=== PATIENT | female | born 1965 | race Caucasian/White ===

== ENCOUNTER → 2017-09-18 | Outpatient (CLI) | payer BC, OTHER ==
--- NOTE | 2017-09-19 08:59 | WOMENS IMAGING REPORT ---
EXAM DESCRIPTION: BILAT SCREENING MAMMO W/CAD COMPLETED DATE/TIME: 09/18/2017 9:14 am REASON FOR STUDY: ROUTINE SCREENING; Z12.31 Z12.31 ENCNTR SCREEN MAMMOGRAM FOR MALIGNANT NEOPLASM O F JUVE COMPARISON: 2008, 2011 TECHNIQUE: Standard craniocaudal and mediolateral oblique views of each breast recorded using [employer] acquisition. LIMITATIONS: None. FINDINGS: Findings present which are benign by mammographic criteria. No suspicious masses, calcifi cations or architectural distortion. Pertinent benign findings: Benign bilateral breast calcifications. Read with the assistance of CAD. .[facility] - R2 Cenova Version 1.3 .[facility] - R2 Cenova Version 1.3 .[facility] - R2 Cenova Version 2.4 [facility] R2 Cenova Version 2.4 .[facility] - R2 [employer] Version 9.2 Benign mammographic findings may include one or more of the following: Smooth masses, popcorn/rim/co arse calcifications, asymmetries, post-procedure changes, and lesions with long-standing stability. IMPRESSION: BENIGN MAMMOGRAPHIC FINDINGS. BIRADS 2 BREAST DENSITY: b. There are scattered areas of fibroglandular density. BIRAD: 2 BENIGN FINDING(S) RECOMMENDATION: ROUTINE SCREENING Please consider bilateral screening tomosynthesis in September 2018 COMMENT: The patient has been notified of the results by letter per MQSA requirements. Additional no tification policies are in place for contacting patient with suspicious or incomplete findings. Quality ID #[id number]: The [employer] recommends an annual screening mammogram for women aged 40 years or over. This facility utilizes a reminder system to ensure that all patients receive reminder letters, and/or direct phone calls for appointments. This includes reminders for routine scr eening mammograms, diagnostic mammograms, or other Breast Imaging Interventions when appropriate. Th is patient will be placed in the appropriate reminder system. The [employer] (ACR) has developed recommendations for screening MRI of the breast s in certain patient populations, to be used in conjunction with mammography. Breast MRI surveillanc e may be appropriate for women with more than 20% lifetime risk of developing breast cancer as deter mined by genetic testing, significant family history of the disease, or history of mantle radiation f or Hodgkins Disease. ACR Practice Guidelines 2008. TECHNICAL DOCUMENTATION: FINDING NUMBER: (1) ASSESSMENT: (1) JOB ID: [id number] [employer]- All Rights Reserved
== END ==
LOC: WI 09:08
PROVIDERS: ATTEND Family Medicine
DX: Z12.31 Encounter for screening mammogram for malignant neoplasm of breast (principal)
CPT/HCPCS: 77067

== ENCOUNTER 2017-10-23 18:59 | Inpatient (IN) | payer OTHER ==
[2017-10-23] MEDS ORDERED: ONDANSETRON HCL INJ/PF 4 MG/2 ML SDV IV ONE (20:10)
[2017-10-23] MEDS ORDERED: KETOROLAC TROMETHAMINE INJ/PF 30 MG/1 ML SDV IV ONE (20:11)
--- NOTE | 2017-10-23 20:26 | ER Document Report ---
ED Medical Screen (RME) - General Chief Complaint: Flu Symptoms Stated Complaint: FLU SYMPTOMS, BLOOD PRESSURE ISSUE Time Seen by Provider: 10/23/17 20:03 Mode of Arrival: Ambulatory Information source: Patient Notes: 51-year-old female presents with a 1 week duration of generalized weakness body aches cough nonproductive as well as diarrhea I have greeted and performed a rapid initial assessment of this patient. A comprehensive ED assessment and evaluation of the patient, analysis of test results and completion of the medical decision making process will be conducted by additional ED providers. PHYSICAL EXAMINATION: GENERAL: appears tired HEAD: Atraumatic, normocephalic. EYES: Pupils equal round extraocular movements intact, conjunctiva are normal. ENT: Nares patent NECK: Normal range of motion LUNGS: No respiratory distress Musculoskeletal: Normal range of motion NEUROLOGICAL: Normal speech, normal gait. PSYCH: Normal mood, normal affect. SKIN: Warm, Dry, normal turgor, no rashes or lesions noted. TRAVEL OUTSIDE OF THE [place] IN LAST 30 DAYS: No - Related Data Allergies/Adverse Reactions: iodine [Iodine] Allergy (Severe, Verified 10/23/17 19:02) SWELLING Sulfa (Sulfonamide Antibiotics) Adverse Reaction (Severe, Verified 10/23/17 19: 02) Hives codeine [Codeine] Adverse Reaction (Intermediate, Verified 10/23/17 19:02) RAPID HEARTBEAT Past Medical History - Past Medical History Cardiac Medical History: Denies: Hx Coronary Artery Disease, Hx Heart Attack, Hx Hypertension Pulmonary Medical History: Reports: Hx Asthma, Hx Bronchitis, Hx COPD, Hx Pneumonia Neurological Medical History: Denies: Hx Cerebrovascular Accident, Hx Seizures Renal/ Medical History: Denies: Hx Peritoneal Dialysis Musculoskeltal Medical History: Reports Hx Arthritis Past Surgical History: Reports: Hx Section. Denies: Hx Hysterectomy - Immunizations Hx Diphtheria, Pertussis, Tetanus Vaccination: Yes Physical Exam - Vital signs Vitals: Temp Pulse Resp BP Pulse Ox 97.7 F 116 H 22 H 98/56 L 95 10/23/17 19:13 10/23/17 19:13 10/23/17 19:13 10/23/17 19:13 10/23/17 19:13 Course - Vital Signs Vital signs: Temp Pulse Resp BP Pulse Ox 97.7 F 116 H 22 H 98/56 L 95 10/23/17 19:13 10/23/17 19:13 10/23/17 19:13 10/23/17 19:13 10/23/17 19:13
[2017-10-23 20:46] LABS: HEMATOCRIT 36.5 % (36.0-47.0); HEMOGLOBIN 12.1 g/dL (12.0-15.5); MEAN CORPUSCULAR HEMOGLOBIN 26.6 pg (27.0-33.4); MEAN CORPUSCULAR HGB CONC 33.1 g/dL (32.0-36.0); MEAN CORPUSCULAR VOLUME 81 fl (80-97); PLATELET COUNT 495 10^3/uL (150-450); RED BLOOD COUNT 4.53 10^6/uL (3.72-5.28); RED CELL DISTRIBUTION WIDTH 14.6 % (11.5-14.0); WHITE BLOOD COUNT 27.9 10^3/uL (4.0-10.5)
--- NOTE | 2017-10-23 20:58 | RADIOLOGY REPORT (SQ) ---
EXAM DESCRIPTION: CHEST PA/LAT COMPLETED DATE/TIME: 10/23/2017 8:37 pm REASON FOR STUDY: cough fever COMPARISON: None. EXAM PARAMETERS: NUMBER OF VIEWS: two views TECHNIQUE: Digital Frontal and Lateral radiographic views of the chest acquired. RADIATION DOSE: NA LIMITATIONS: none FINDINGS: LUNGS AND PLEURA: There is considerable opacification in the right lung involving apparent ly the upper, middle, and lower lobes. The left lung is free of infiltrates. MEDIASTINUM AND HILAR STRUCTURES: No masses or contour abnormalities. HEART AND VASCULAR STRUCTURES: Heart normal size. No evidence for failure. BONES: No acute findings. HARDWARE: None in the chest. OTHER: No other significant finding. IMPRESSION: Extensive pneumonia in the right lung. TECHNICAL DOCUMENTATION: JOB ID: [id number] [employer]- All Rights Reserved Reading location - IP/workstation name: [email or web address]
[2017-10-23 21:04] LABS: ALANINE AMINOTRANSFERASE 38 U/L (9-52); ALBUMIN 3.1 g/dL (3.5-5.0); ALKALINE PHOSPHATASE 149 U/L (38-126); ASPARTATE AMINO TRANSFERASE 37 U/L (14-36); BILIRUBIN,TOTAL 1.1 mg/dL (0.2-1.3); BLOOD UREA NITROGEN 57 mg/dL (7-20); CALCIUM 8.9 mg/dL (8.4-10.2); CREATINE KINASE 39 U/L (30-135); GLUCOSE 194 mg/dL (75-110); POTASSIUM 4.3 mmol/L (3.6-5.0)
[2017-10-23 21:09] LABS: ANION GAP 19 (5-19); CARBON DIOXIDE 16 mmol/L (22-30); CHLORIDE 88 mmol/L (98-107)
--- NOTE | 2017-10-23 21:12 | ER Document Report ---
ED Respiratory Problem - General Chief Complaint: Flu Symptoms Stated Complaint: FLU SYMPTOMS, BLOOD PRESSURE ISSUE Time Seen by Provider: 10/23/17 20:03 Mode of Arrival: Ambulatory Notes: Patient is a 51-year-old female that comes emergency department for chief complaint of difficulty breathing, weakness, productive green sputum and a few flecks of blood, she states she has worsened for the past several days, she states initially she had a "cold" and diarrhea but now she feels much worse. She has been running fevers. Past medical history of diabetes, former smoker, no history of COPD, asthma, CAD. She has had the influenza and pneumonia vaccines. TRAVEL OUTSIDE OF THE [place] IN LAST 30 DAYS: No - Related Data Allergies/Adverse Reactions: iodine [Iodine] Allergy (Severe, Verified 10/23/17 19:02) SWELLING Sulfa (Sulfonamide Antibiotics) Adverse Reaction (Severe, Verified 10/23/17 19: 02) Hives codeine [Codeine] Adverse Reaction (Intermediate, Verified 10/23/17 19:02) RAPID HEARTBEAT Past Medical History - General Information source: Patient - Social History Smoking Status: Former Smoker Frequency of alcohol use: None Drug Abuse: None Lives with: Family Family History: Reviewed & Not Pertinent Patient has suicidal ideation: No Patient has homicidal ideation: No - Past Medical History Cardiac Medical History: Denies: Hx Coronary Artery Disease, Hx Heart Attack, Hx Hypertension Pulmonary Medical History: Reports: Hx Asthma, Hx Bronchitis, Hx COPD, Hx Pneumonia Neurological Medical History: Denies: Hx Cerebrovascular Accident, Hx Seizures Renal/ Medical History: Denies: Hx Peritoneal Dialysis Musculoskeltal Medical History: Reports Hx Arthritis Past Surgical History: Reports: Hx Section. Denies: Hx Hysterectomy - Immunizations Hx Diphtheria, Pertussis, Tetanus Vaccination: Yes Review of Systems - Review of Systems Constitutional: See HPI EENT: No symptoms reported Cardiovascular: No symptoms reported Respiratory: See HPI Gastrointestinal: See HPI Genitourinary: No symptoms reported Female Genitourinary: No symptoms reported Musculoskeletal: No symptoms reported Skin: No symptoms reported Hematologic/Lymphatic: No symptoms reported Neurological/Psychological: No symptoms reported Physical Exam - Vital signs Vitals: Temp Pulse Resp BP Pulse Ox 97.7 F 116 H 22 H 98/56 L 95 10/23/17 19:13 10/23/17 19:13 10/23/17 19:13 10/23/17 19:13 10/23/17 19:13 - General General appearance: Anxious In distress: Moderate - patient on her side, labored breathing, appears to be very uncomfortable - Respiratory Respiratory status: Respiratory distress - Mild, Labored, Tachypnea Breath sounds: Decreased air movement - Decreased breath sounds, right greater than left, scattered rhonchi - Cardiovascular Rhythm: Regular, Tachycardia Heart sounds: Normal auscultation, S1 appreciated, S2 appreciated Gallop: None auscultated Normal capillary refill: Yes - Abdominal Inspection: Normal Tenderness: Nontender. No: Tender, Guarding - Back Back: Normal, Nontender. No: Tender - Extremities General upper extremity: Normal inspection, Nontender, Normal ROM, Normal strength General lower extremity: Normal inspection, Nontender, Normal ROM, Normal strength. No: Edema - Neurological Neuro grossly intact: Yes Cognition: Normal Orientation: AAOx4 [place] Coma Scale Eye Opening: Spontaneous [place] Coma Scale Verbal: Oriented [place] Coma Scale Motor: Obeys Commands Patricia Coma Scale Total: 15 Speech: Normal Cranial nerves: Normal Cerebellar coordination: Normal Motor strength normal: LUE, RUE, LLE, RLE Additional motor exam normals: Equal scallop binder Sensory: Normal - Skin Skin Temperature: Warm Skin Moisture: Dry Skin Color: Normal Course - Re-evaluation Re-evalutation: On initial evaluation patient in mild respiratory distress with tachypnea, pursed lip breathing, labored breathing, decreased breath sounds much worse on the right compared to the left, scattered rhonchi, she is tachycardic, hypotensive. Concern for sepsis. Starting antibiotics. CBC shows marked leukocytosis, suspect some dehydration component with low bicarbonate and acute renal insufficiency with reported diarrhea. However patient is in mild respiratory distress. After placing patient on nasal cannula her tachypnea improved, she does not have any hypoxia, she appears clinically improved. Will reassess. Chest x-ray showing large right-sided pneumonia. Discussed with family, will admit patient to the hospital for pneumonia, suspected sepsis, acute renal insufficiency. Spoke with Dr. Sultana, patient will be admitted to the [facility]. 10/23/17 22:50 Called to bedside, patient has become hypoxic, down to the 70s on nasal cannula , she is decompensating. Placed on BiPAP. On BiPAP patient's respiratory distress decreased, she is oxygenating well. ABG sent. Called and updated Dr. Sultana. Updated Dr. Lacey. 10/23/17 After patient was placed on BiPAP she significantly improved, hypoxia resolved, patient stating she feels much better, clinically she is much improved. Initial ABG is concerning, will be repeated. Repeat ABG was not concerning. Patient significantly improved. Stable on BiPAP for now. - Vital Signs Vital signs: Temp Pulse Resp BP Pulse Ox 97.6 F 93 20 107/49 L 100 10/24/17 05:21 10/24/17 05:21 10/24/17 05:21 10/24/17 05:21 10/24/17 05:21 - Laboratory Result Diagrams: 10/24/17 04:52 10/24/17 04:52 Laboratory results interpreted by me: 10/23/17 10/23/17 10/23/17 20:21 20:21 21:20 WBC 27.9 H MCH 26.6 L RDW 14.6 H Plt Count 495 H Seg Neuts % (Manual) 89 H Lymphocytes % (Manual) 3 L Abs Neuts (Manual) 25.9 H VBG pCO2 32.0 L VBG HCO3 15.9 L Sodium 123.0 L Chloride 88 L Carbon Dioxide 16 L BUN 57 H Creatinine 3.36 H Est GFR ( Amer) 17 L Est GFR (Non-Af Amer) 14 L Glucose 194 H AST 37 H Alkaline Phosphatase 149 H Total Protein 6.0 L Albumin 3.1 L Critical Care Note - Critical Care Note Total time excluding time spent on procedures (mins): 40 - Sepsis, respiratory distress, hypotension, hypoxia Comments: Please allow 40 minutes of critical care time for evaluation and treatment of patient with pneumonia, sepsis, tachycardia, hypotension, hypoxia, multiple re- evaluations, multiple treatments, consultation and admission to the hospital. Discharge - Discharge Clinical Impression: Tachycardia, Hypoxia Pneumonia Qualifiers: Pneumonia type: due to unspecified organism Laterality: right Lung location: unspecified part of lung Qualified Code(s): J18.9 - Pneumonia, unspecified organism Acute renal failure Qualifiers: Acute renal failure type: unspecified Qualified Code(s): N17.9 - Acute kidney failure, unspecified Hypotension Qualifiers: Hypotension type: unspecified hypotension type Qualified Code(s): I95.9 - Hypotension, unspecified Condition: Fair Disposition: ADMITTED INPATIENT Admitting Provider: Hospitalist Unit Admitted: [facility]
[2017-10-23 21:16] LABS: ABSOLUTE LYMPHOCYTES# (MANUAL) 0.8 10^3/uL (0.5-4.7); ABSOLUTE MONOCYTES # (MANUAL) 1.1 10^3/uL (0.1-1.4); ABSOLUTE NEUTROPHILS# (MANUAL) 25.9 10^3/uL (1.7-8.2); BAND NEUTROPHILS % (MANUAL) 4 % (3-5); BASOPHILS % (MANUAL) 0 % (0-2); CREATINE KINASE MB 1.65 ng/mL (<4.55); EOSINOPHILS % (MANUAL) 0 % (0-6); LYMPHOCYTES % (MANUAL) 3 % (13-45); MONOCYTES % (MANUAL) 4 % (3-13); SEGMENTED NEUTROPHILS % (MAN) 89 % (42-78); TOTAL CELLS COUNTED 100
[2017-10-23] MEDS ORDERED: CEFTRIAXONE INJ 1000 MG VIAL IV ONE (21:16)
[2017-10-23 21:17] LABS: ANISOCYTOSIS SLIGHT; HYPOCHROMASIA SLIGHT; PLATELET COMMENT INCREASED; POIKILOCYTOSIS SLIGHT; TOXIC GRANULATION SLIGHT; TROPONIN I < 0.012 ng/mL
[2017-10-23] MEDS ORDERED: AZITHROMYCIN INJ 500 MG VIAL IV ONE (21:17)
[2017-10-23 21:37] LABS: VENOUS BLOOD BASE EXCESS -9.2 mmol/L; VENOUS BLOOD HCO3 15.9 mmol/L (20-32); VENOUS BLOOD PH 7.31 (7.30-7.42)
[2017-10-23] MEDS: NORMAL SALINE 1000 ML 1,000 ML IV PRN ×2 (21:39→22:12)
[2017-10-23] MEDS ORDERED: DEXTROSE 40% GEL 15 GM TUBE PO PRN ×2 (22:09)
[2017-10-23] MEDS ORDERED: GLUCAGON,HUMAN RECOMB 1 MG INJ IM PRN (22:09)
[2017-10-23] MEDS ORDERED: IPRATROPIUM/ALBUTEROL 0.5-2.5 MG/3 ML AMPUL NEB PRN (22:09)
[2017-10-23] MEDS ORDERED: DEXTROSE 50%-WATER 25 GM/50 ML DISP.SYRIN IV PRN ×2 (22:09)
[2017-10-23] MEDS ORDERED: VANCOMYCIN HCL 1,500 MG in DEXTROSE 5%-WATER 250 ML IV ONE (22:12)
[2017-10-23] MEDS ORDERED: VANCOMYCIN HCL 0 MG in DEXTROSE 5%-WATER 250 ML IV NR (22:15)
[2017-10-23] MEDS ORDERED: NORMAL SALINE 1000 ML 1,000 ML IV SCH (22:15)
[2017-10-23] MEDS ORDERED: VANCOMYCIN HCL INJ 1000 MG VIAL IV PRN (22:37)
[2017-10-23] MEDS ORDERED: DEXTROSE 5%-WATER 250 ML with NOREPINEPHRINE BITARTRATE 4 MG IV PRN ×2 (23:07)
[2017-10-23 23:27] LABS: ARTERIAL BLOOD BASE EXCESS -12.9 mmol/L; ARTERIAL BLOOD H2CO3 1.46 mmol/L (1.05-1.35); ARTERIAL BLOOD HCO3 15.9 mmol/L (20-26); ARTERIAL BLOOD O2 SATURATION 99.6 % (94-98); ARTERIAL BLOOD PCO2 48.4 mmHg (35-45); ARTERIAL BLOOD PO2 348.5 mmHg (80-100); ARTERIAL BLOOD TOTAL CO2 17.4 mmol/L (21-25)
[2017-10-23 23:29] LABS: ARTERIAL BLOOD FIO2 100%
[2017-10-23 23:33] LABS: ARTERIAL BLOOD PH 7.14 (7.35-7.45)
[2017-10-24] MEDS: HYDROCORTISONE SOD SUCCINATE INJ/PF 100 MG/2 ML SDV IV SCH ×3 (00:32→21:20)
[2017-10-24 01:20] LABS: ARTERIAL BLOOD BASE EXCESS -10.5 mmol/L; ARTERIAL BLOOD H2CO3 1.05 mmol/L (1.05-1.35); ARTERIAL BLOOD HCO3 15.5 mmol/L (20-26); ARTERIAL BLOOD O2 SATURATION 98.7 % (94-98); ARTERIAL BLOOD PCO2 34.8 mmHg (35-45); ARTERIAL BLOOD PH 7.27 (7.35-7.45); ARTERIAL BLOOD PO2 153.8 mmHg (80-100); ARTERIAL BLOOD TOTAL CO2 16.5 mmol/L (21-25)
[2017-10-24 01:22] LABS: ARTERIAL BLOOD FIO2 60%
--- NOTE | 2017-10-24 02:41 | PDOC H&P ---
History of Present Illness Admission Date/PCP: 10/23/17 22:34 Patient complains of: Shortness of breath and fever History of Present Illness: MATTIE LAI is a 51 year old female with a past medical history of diabetes, COPD and annual pneumonia. Patient presents 1 week after diagnosis of influenza with initial improvement but subsequent worsening. She has had subjective fever and diarrhea. In the emergency room she is hypotensive with acute renal failure, metabolic acidosis and hypoxia. She receives empiric antibiotics and supplemental oxygen refer to the hospitalist for admission. Patient denies recent change in medications. She has been exposed to multiple ill contacts at work. She currently denies chest pain, palpitations nausea or vomiting. Past Medical History Cardiac Medical History: Denies: Coronary Artery Disease, Myocardial Infarction, Hypertension Pulmonary Medical History: Reports: Asthma, Bronchitis, Chronic Obstructive Pulmonary Disease (COPD), Pneumonia EENT Medical History: Reports: None Neurological Medical History: Reports: None Denies: Seizures Endocrine Medical History: Reports: Diabetes Mellitus Type 2 Renal/ Medical History: Reports: None Malignancy Medical History: Reports: None GI Medical History: Reports: None Musculoskeltal Medical History: Reports: Arthritis Skin Medical History: Reports: None Psychiatric Medical History: Reports: None Traumatic Medical History: Reports: None Hematology: Denies: Anemia Infectious Medical History: Reports: None Past Surgical History Past Surgical History: Reports: Section Denies: Hysterectomy Social History Information Source: Patient, Relative Lives with: Spouse/Significant other Smoking Status: Former Smoker Frequency of Alcohol Use: Occasional Hx Recreational Drug Use: No Hx Prescription Drug Abuse: No - Advance Directive Resuscitation Status: Full Code Family History Family History: COPD Parental Family History Reviewed: Yes Children Family History Reviewed: Yes Sibling(s) Family History Reviewed.: Yes Medication/Allergy Home Medications: Acetaminophen [Tylenol] 500 mg PO PRN PRN 04/02/14 Aspirin 81 mg PO DAILY PRN 04/02/14 Budesonide/Formoterol Fumarate [Symbicort HFA 160-4.5 mcg Inhaler 6 gm] 2 puff IH Q12 04/02/14 Esomeprazole Mag Trihydrate [Nexium] 40 mg PO DAILY 04/02/14 Guaifenesin [Mucus Relief] 600 mg PO ASDIR 04/02/14 Krill/[place]-3/Dha/Epa/Lipids [Krill Oil 300 mg Softgel] 1 each PO DAILY Levothyroxine Sodium 88 mcg PO DAILY 04/02/14 Metformin HCl [Glucophage 500 mg Tablet] 500 mg PO BID 04/02/14 Montelukast Sodium [Singulair 10 mg Tablet] 10 mg PO DAILY 04/02/14 Multivitamin [Multi Vitamin Daily] 1 each PO DAILY 04/02/14 Sertraline HCl 50 mg PO DAILY 04/02/14 Simvastatin [Zocor 20 mg Tablet] 20 mg PO QHS 04/02/14 Allergies/Adverse Reactions: iodine [Iodine] Allergy (Severe, Verified 10/23/17 19:02) SWELLING Sulfa (Sulfonamide Antibiotics) Adverse Reaction (Severe, Verified 10/23/17 19: 02) Hives codeine [Codeine] Adverse Reaction (Intermediate, Verified 10/23/17 19:02) RAPID HEARTBEAT Review of Systems Constitutional: PRESENT: as per HPI, anorexia, chills, fatigue, fever(s), headache(s), weakness Eyes: ABSENT: visual disturbances Ears: PRESENT: as per HPI Cardiovascular: ABSENT: chest pain, dyspnea on exertion, edema, orthropnea, palpitations Respiratory: PRESENT: as per HPI, cough, dyspnea, sputum. ABSENT: hemoptysis Gastrointestinal: PRESENT: diarrhea. ABSENT: abdominal pain, constipation, hematemesis, hematochezia, nausea, vomiting Genitourinary: ABSENT: dysuria, hematuria Musculoskeletal: ABSENT: joint swelling Integumentary: ABSENT: rash, wounds Neurological: ABSENT: abnormal gait, abnormal speech, confusion, dizziness, focal weakness, syncope Psychiatric: ABSENT: anxiety, depression, homidical ideation, suicidal ideation Endocrine: ABSENT: cold intolerance, heat intolerance, polydipsia, polyuria Hematologic/Lymphatic: ABSENT: easy bleeding, easy bruising Physical Exam Vital Signs: Temp Pulse Resp BP Pulse Ox 97.6 F 105 H 26 H 113/62 100 10/24/17 01:41 10/24/17 01:41 10/24/17 01:41 10/24/17 01:41 10/24/17 01:41 Pulse Oximeter Continuous Start: 10/23/17 22: 09 Freq: RTQ4 Status: Active Document 10/24/17 00:00 STI (Rec: 10/24/17 01:38 STI [id number]) Pulse Oximetry Assessment Oxygen Saturation (92-100) 98 Oxygen Delivery Method Bi-pap Fraction of Inspired Oxygen (FIO2) 60 Equipment Usage Equipment Standby Continuous SpO2 Machine # ER MONITOR General appearance: PRESENT: cooperative, disheveled, obese, severe distress Head exam: PRESENT: atraumatic, normocephalic Eye exam: PRESENT: conjunctiva pink, EOMI, PERRLA. ABSENT: scleral icterus Ear exam: PRESENT: normal external ear exam Mouth exam: PRESENT: moist, tongue midline Neck exam: ABSENT: carotid bruit, JVD, lymphadenopathy, thyromegaly Respiratory exam: PRESENT: accessory muscle use, decreased breath sounds, prolonged expiratory phas, rales, retraction, rhonchi, tachypnea. ABSENT: stridor, symmetrical, unlabored, wheezes Cardiovascular exam: PRESENT: RRR. ABSENT: diastolic murmur, rubs, systolic murmur Pulses: PRESENT: normal dorsalis pedis pul Vascular exam: PRESENT: normal capillary refill GI/Abdominal exam: PRESENT: normal bowel sounds, soft. ABSENT: distended, guarding, mass, organolmegaly, rebound, tenderness Rectal exam: PRESENT: deferred Extremities exam: PRESENT: full ROM. ABSENT: calf tenderness, clubbing, pedal edema Neurological exam: PRESENT: alert, awake, oriented to person, oriented to place , oriented to time, oriented to situation, CN II-XII grossly intact. ABSENT: motor sensory deficit Psychiatric exam: PRESENT: appropriate affect, normal mood. ABSENT: homicidal ideation, suicidal ideation Skin exam: PRESENT: dry, intact, warm. ABSENT: cyanosis, rash Results Laboratory Results: 10/23/17 10/23/17 10/24/17 23:05 23:05 01:11 Carbonic Acid 1.46 H 1.05 HCO3/H2CO3 Ratio 10:1 14:1 ABG pH 7.14 L* 7.27 L ABG pCO2 48.4 H 34.8 L ABG pO2 348.5 H 153.8 H ABG HCO3 15.9 L 15.5 L ABG O2 Saturation 99.6 H 98.7 H ABG Base Excess -12.9 -10.5 FiO2 100% 60% Urine Color Cancelled Urine Appearance Cancelled Urine pH Cancelled Ur Specific [place] Cancelled Urine Protein Cancelled Urine Glucose (UA) Cancelled Urine Ketones Cancelled Urine Blood Cancelled Urine Nitrite Cancelled Ur Leukocyte Esterase Cancelled Urine WBC (Auto) Cancelled Urine RBC (Auto) Cancelled Impressions: Chest X-Ray 10/23/17 20:11 IMPRESSION: Extensive pneumonia in the right lung. Assessment & Plan - Diagnosis (1) Sepsis Is this a current diagnosis for this admission?: Yes Plan: Secondary to pneumonia complicated by recent influenza. IV vancomycin and Levaquin, IV fluid challenge, evaluate cortisol level. As needed Solu-Cortef and pressors (2) Acute renal failure Qualifiers: Acute renal failure type: unspecified Qualified Code(s): N17.9 - Acute kidney failure, unspecified Is this a current diagnosis for this admission?: Yes Plan: Secondary to #1 IV fluid challenge avoid nephrotoxic meds and doses follow-up repeat chemistry (3) Hypotension Qualifiers: Hypotension type: unspecified hypotension type Qualified Code(s): I95.9 - Hypotension, unspecified Is this a current diagnosis for this admission?: Yes Plan: Secondary to sepsis, complicated by diabetes and acute renal failure. IV fluid challenge and levo fed as needed (4) Pneumonia Qualifiers: Pneumonia type: due to unspecified organism Laterality: right Lung location: unspecified part of lung Qualified Code(s): J18.9 - Pneumonia, unspecified organism Is this a current diagnosis for this admission?: Yes Plan: Vancomycin given recent pneumonia and Levaquin, BiPAP, albuterol and Atrovent. Follow-up ABG (5) Tachycardia Is this a current diagnosis for this admission?: Yes Plan: Secondary to sepsis. Please see #1 - Time Time Spent: 50 to 70 Minutes - Inpatient Certification Medical Necessity: Need Close Monitoring Due to Risk of Patient Decompensation
[2017-10-24] MEDS: IPRATROPIUM/ALBUTEROL 0.5-2.5 MG/3 ML AMPUL NEB SCH ×4 (02:50→20:03)
[2017-10-24] MEDS: HEPARIN SOD (PORCINE) 5,000 UNIT/ML 1 ML SYRINGE SUBCUT SCH ×3 (05:09→21:20)
[2017-10-24 05:53] LABS: ANION GAP 16 (5-19); BLOOD UREA NITROGEN 57 mg/dL (7-20); CALCIUM 7.7 mg/dL (8.4-10.2); CARBON DIOXIDE 17 mmol/L (22-30); CHLORIDE 90 mmol/L (98-107); GLUCOSE 258 mg/dL (75-110); POTASSIUM 3.8 mmol/L (3.6-5.0); SODIUM 122.7 mmol/L (137-145)
[2017-10-24 05:58] LABS: HEMATOCRIT 31.7 % (36.0-47.0); HEMOGLOBIN 10.5 g/dL (12.0-15.5); MEAN CORPUSCULAR HEMOGLOBIN 26.4 pg (27.0-33.4); MEAN CORPUSCULAR VOLUME 80 fl (80-97); PLATELET COUNT 354 10^3/uL (150-450); RED BLOOD COUNT 3.97 10^6/uL (3.72-5.28); WHITE BLOOD COUNT 22.2 10^3/uL (4.0-10.5)
[2017-10-24 06:05] LABS: ABSOLUTE LYMPHOCYTES# (MANUAL) 1.1 10^3/uL (0.5-4.7); ABSOLUTE MONOCYTES # (MANUAL) 0.2 10^3/uL (0.1-1.4); ABSOLUTE NEUTROPHILS# (MANUAL) 20.9 10^3/uL (1.7-8.2); BASOPHILS % (MANUAL) 0 % (0-2); EOSINOPHILS % (MANUAL) 0 % (0-6); LYMPHOCYTES % (MANUAL) 5 % (13-45); MONOCYTES % (MANUAL) 1 % (3-13); SEGMENTED NEUTROPHILS % (MAN) 70 % (42-78); TOTAL CELLS COUNTED 100
[2017-10-24 06:11] LABS: ANISOCYTOSIS SLIGHT; BURR CELLS 1+; HYPOCHROMASIA SLIGHT; OVALOCYTES SLIGHT; PLATELET COMMENT ADEQUATE; PLATELET LARGE PRESENT; POLYCHROMASIA SLIGHT; TOXIC GRANULATION 2+; TOXIC VACUOLATION PRESENT
[2017-10-24 06:14] LABS: BAND NEUTROPHILS % (MANUAL) 24 % (3-5)
--- NOTE | 2017-10-24 08:27 | EKG REPORT ---
SEVERITY:- BORDERLINE ECG - SINUS TACHYCARDIA BORDERLINE T WAVE ABNORMALITIES : Confirmed by: Simone Ellison MD 24-Oct-2017 08:26:47
[2017-10-24 09:10] LABS: OSMOLALITY,URINE 226 mOsm/kg (300-900)
[2017-10-24 09:17] LABS: URINE SODIUM 35 mmol/L (30-90)
[2017-10-24] MEDS: GUAIFENESIN 600 MG TABLET.SA PO SCH ×2 (09:58→21:20)
[2017-10-24] MEDS: LEVOFLOXACIN 750 MG TABLET PO SCH (09:58)
[2017-10-24] MEDS: INSULIN LISPRO 100 UNIT/ML 3 ML VIAL SUBCUT PRN ×4 (10:44→22:40)
--- NOTE | 2017-10-24 12:22 | PDOC PROGRESS REPORT ---
Subjective Progress Note for:: 10/24/17 Subjective:: The patient was admitted overnight with complications of influenza which she developed about a week ago. She has bilateral pneumonia and had evidence of severe sepsis and bilateral pneumonia on in imaging studies at the time of admission. She was initially quite hypotensive but responded nicely to IV fluid boluses. She also was initially on BiPAP but is since been weaned off and currently stable on oxygen. Today when I saw her she is resting in the bed. She states she still feels just horrible but states that she is breathing easier than she was last night. No fever or shaking chills. She does have chest pain from frequent coughing. No heart palpitations. Her shortness of breath is better on the oxygen and she feels better off of the BiPAP. She states she has no appetite but is had no jaye nausea or vomiting. No abdominal pain. No urinary complaints. Reason For Visit: SEPSIS,COPD DIABETES ACIDOSIS,PNEUOMONIA Physical Exam Vital Signs: Temp Pulse Resp BP Pulse Ox 97.6 F 100 18 107/49 L 97 10/24/17 05:21 10/24/17 08:23 10/24/17 08:23 10/24/17 05:21 10/24/17 08:40 Pulse Oximeter Continuous Start: 10/23/17 22: 09 Freq: RTQ4 Status: Active Document 10/24/17 08:23 HCR (Rec: 10/24/17 10:45 HCR [email or web address]) Pulse Oximetry Assessment Oxygen Saturation (92-100) 100 Oxygen Delivery Method Bi-pap Equipment Usage Equipment in Use Continuous SpO2 Machine # 3 Intake & Output 10/23/17 10/24/17 10/25/17 06:59 06:59 06:59 Intake Total 20 Output Total 0 Balance 20 Weight 78.9 kg General appearance: PRESENT: other - She looks like she feels quite poorly but is in no acute distress Head exam: PRESENT: atraumatic, normocephalic Mouth exam: PRESENT: moist, tongue midline Neck exam: ABSENT: carotid bruit - Today, JVD, lymphadenopathy, thyromegaly Respiratory exam: PRESENT: rhonchi Cardiovascular exam: PRESENT: tachycardia. ABSENT: diastolic murmur, rubs, systolic murmur Pulses: PRESENT: normal dorsalis pedis pul GI/Abdominal exam: PRESENT: normal bowel sounds, soft. ABSENT: distended, guarding, mass, organolmegaly, rebound, tenderness Rectal exam: PRESENT: deferred Extremities exam: PRESENT: full ROM. ABSENT: calf tenderness, clubbing, pedal edema Neurological exam: PRESENT: alert, awake, oriented to person, oriented to place , oriented to time, oriented to situation, CN II-XII grossly intact. ABSENT: motor sensory deficit Skin exam: PRESENT: dry, intact, warm. ABSENT: cyanosis, rash Results Laboratory Results: 10/24/17 04:52 10/24/17 04:52 10/23/17 10/23/17 10/24/17 23:05 23:05 01:11 WBC RBC Hgb Hct MCV MCH MCHC RDW Plt Count Seg Neutrophils % Lymphocytes % Monocytes % Eosinophils % Basophils % Absolute Neutrophils Absolute Lymphocytes Absolute Monocytes Absolute Eosinophils Absolute Basophils Carbonic Acid 1.46 H 1.05 HCO3/H2CO3 Ratio 10:1 14:1 ABG pH 7.14 L* 7.27 L ABG pCO2 48.4 H 34.8 L ABG pO2 348.5 H 153.8 H ABG HCO3 15.9 L 15.5 L ABG O2 Saturation 99.6 H 98.7 H ABG Base Excess -12.9 -10.5 FiO2 100% 60% Sodium Potassium Chloride Carbon Dioxide Anion Gap BUN Creatinine Est GFR ( Amer) Est GFR (Non-Af Amer) Glucose Serum Osmolality Calcium Urine Color Cancelled Urine Appearance Cancelled Urine pH Cancelled Ur Specific [place] Cancelled Urine Protein Cancelled Urine Glucose (UA) Cancelled Urine Ketones Cancelled Urine Blood Cancelled Urine Nitrite Cancelled Ur Leukocyte Esterase Cancelled Urine WBC (Auto) Cancelled Urine RBC (Auto) Cancelled Urine Osmolality 10/24/17 10/24/17 10/24/17 04:52 04:52 08:25 WBC 22.2 H RBC 3.97 Hgb 10.5 L Hct 31.7 L MCV 80 MCH 26.4 L MCHC 33.0 RDW 15.0 H Plt Count 354 Seg Neutrophils % Not Reportable Lymphocytes % Not Reportable Monocytes % Not Reportable Eosinophils % Not Reportable Basophils % Not Reportable Absolute Neutrophils Not Reportable Absolute Lymphocytes Not Reportable Absolute Monocytes Not Reportable Absolute Eosinophils Not Reportable Absolute Basophils Not Reportable Carbonic Acid HCO3/H2CO3 Ratio ABG pH ABG pCO2 ABG pO2 ABG HCO3 ABG O2 Saturation ABG Base Excess FiO2 Sodium 122.7 L Potassium 3.8 Chloride 90 L Carbon Dioxide 17 L Anion Gap 16 BUN 57 H Creatinine 3.17 H Est GFR ( Amer) 19 L Est GFR (Non-Af Amer) 15 L Glucose 258 H Serum Osmolality Calcium 7.7 L Urine Color Urine Appearance Urine pH Ur Specific [place] Urine Protein Urine Glucose (UA) Urine Ketones Urine Blood Urine Nitrite Ur Leukocyte Esterase Urine WBC (Auto) Urine RBC (Auto) Urine Osmolality 226 L 10/24/17 10:07 WBC RBC Hgb Hct MCV MCH MCHC RDW Plt Count Seg Neutrophils % Lymphocytes % Monocytes % Eosinophils % Basophils % Absolute Neutrophils Absolute Lymphocytes Absolute Monocytes Absolute Eosinophils Absolute Basophils Carbonic Acid HCO3/H2CO3 Ratio ABG pH ABG pCO2 ABG pO2 ABG HCO3 ABG O2 Saturation ABG Base Excess FiO2 Sodium Potassium Chloride Carbon Dioxide Anion Gap BUN Creatinine Est GFR ( Amer) Est GFR (Non-Af Amer) Glucose Serum Osmolality 283 Calcium Urine Color Urine Appearance Urine pH Ur Specific [place] Urine Protein Urine Glucose (UA) Urine Ketones Urine Blood Urine Nitrite Ur Leukocyte Esterase Urine WBC (Auto) Urine RBC (Auto) Urine Osmolality 10/24/17 04:52 NT-Pro-B Natriuret Pep 1830 H Impressions: Chest X-Ray 10/23/17 20:11 IMPRESSION: Extensive pneumonia in the right lung. Assessment & Plan - Diagnosis (1) Severe sepsis Is this a current diagnosis for this admission?: Yes Plan: The patient had evidence of severe sepsis at the time of admission with marked leukocytosis, hypotension, tachycardia, tachypnea with evidence of respiratory failure requiring BiPAP therapy. She also had acute renal failure and elevated liver function tests. The patient's blood pressure fortunately has stabilized. She seems to be improving. Therapy will be outlined below. (2) Acute respiratory failure Is this a current diagnosis for this admission?: Yes Plan: The patient was initially on BiPAP but is been weaned off and is resting comfortably on oxygen. We will continue to treat her pneumonia as outlined below. We will continue aggressive breathing treatments. (3) Influenza Is this a current diagnosis for this admission?: Yes Plan: She is completed a course of Tamiflu. Her pneumonia is a complication of the flu (4) Pneumonia Qualifiers: Pneumonia type: due to unspecified organism Laterality: right Lung location: unspecified part of lung Qualified Code(s): J18.9 - Pneumonia, unspecified organism Is this a current diagnosis for this admission?: Yes Plan: Concerns for community-acquired pathogens such as gram positives and atypicals. She did receive IV Rocephin and Zithromax in the emergency room. I will start her on IV Levaquin today. Her vancomycin will be stopped. This will be the first full day of treatment with IV Levaquin. (5) Acute renal failure Qualifiers: Acute renal failure type: unspecified Qualified Code(s): N17.9 - Acute kidney failure, unspecified Is this a current diagnosis for this admission?: Yes Plan: Her baseline creatinine is 0.9. Currently her creatinine is 3.17. Her acute renal failure is due ATN due to severe sepsis. We will check a chemistry panel in the morning. Her creatinine did go down a bit so I will hold off getting nephrology involved. Continue IV fluids. (6) Hyponatremia Is this a current diagnosis for this admission?: Yes Plan: Sodium is significantly low likely due to acute renal failure and acute illness. Continue IV fluid hydration and a chemistry panel will be checked in the morning. (7) Metabolic acidosis Is this a current diagnosis for this admission?: Yes Plan: Secondary to acute renal failure. Resolved (8) Elevated liver function tests Is this a current diagnosis for this admission?: Yes Plan: Likely secondary to acute illness and sepsis. (9) Anemia Is this a current diagnosis for this admission?: Yes Plan: The patient had a precipitous drop in her hemoglobin since the time of admission likely due to hemodilution (10) Thrombocytosis Is this a current diagnosis for this admission?: Yes Plan: Likely reactive to her acute illness (11) Full code status Is this a current diagnosis for this admission?: Yes - Time Time Spent with patient: 25-34 minutes - Inpatient Certification Medical Necessity: Need For IV Fluids, Need for IV Antibiotics
[2017-10-24] MEDS ORDERED: LEVOFLOXACIN 750 MG/D5W RTU 750 MG/150 ML RTUPB IV SCH (14:00)
[2017-10-24] MEDS: ACETAMINOPHEN 325 MG TABLET PO PRN (16:37)
[2017-10-25] MEDS: IPRATROPIUM/ALBUTEROL 0.5-2.5 MG/3 ML AMPUL NEB SCH ×4 (01:43→20:28)
[2017-10-25] MEDS: HEPARIN SOD (PORCINE) 5,000 UNIT/ML 1 ML SYRINGE SUBCUT SCH ×3 (04:46→21:08)
[2017-10-25] MEDS: HYDROCORTISONE SOD SUCCINATE INJ/PF 100 MG/2 ML SDV IV SCH ×3 (04:46→21:08)
[2017-10-25 05:24] LABS: HEMOGLOBIN 9.4 g/dL (12.0-15.5); MEAN CORPUSCULAR HEMOGLOBIN 26.4 pg (27.0-33.4); MEAN CORPUSCULAR HGB CONC 33.5 g/dL (32.0-36.0); MEAN CORPUSCULAR VOLUME 79 fl (80-97); PLATELET COUNT 403 10^3/uL (150-450); RED BLOOD COUNT 3.57 10^6/uL (3.72-5.28); RED CELL DISTRIBUTION WIDTH 14.9 % (11.5-14.0)
[2017-10-25 05:57] LABS: ALANINE AMINOTRANSFERASE 38 U/L (9-52); ALBUMIN 2.6 g/dL (3.5-5.0); ALKALINE PHOSPHATASE 117 U/L (38-126); ANION GAP 16 (5-19); ASPARTATE AMINO TRANSFERASE 20 U/L (14-36); BILIRUBIN,DIRECT 0.3 mg/dL (0.0-0.4); BILIRUBIN,TOTAL 0.3 mg/dL (0.2-1.3); BLOOD UREA NITROGEN 55 mg/dL (7-20); CALCIUM 8.6 mg/dL (8.4-10.2); CARBON DIOXIDE 16 mmol/L (22-30); CHLORIDE 93 mmol/L (98-107); GLUCOSE 251 mg/dL (75-110); POTASSIUM 3.7 mmol/L (3.6-5.0); SODIUM 124.9 mmol/L (137-145); TOTAL PROTEIN 4.9 g/dL (6.3-8.2)
[2017-10-25 06:04] LABS: ABSOLUTE LYMPHOCYTES# (MANUAL) 0.5 10^3/uL (0.5-4.7); ABSOLUTE NEUTROPHILS# (MANUAL) 22.6 10^3/uL (1.7-8.2); BASOPHILS % (MANUAL) 0 % (0-2); EOSINOPHILS % (MANUAL) 0 % (0-6); LYMPHOCYTES % (MANUAL) 2 % (13-45); MONOCYTES % (MANUAL) 4 % (3-13); SEGMENTED NEUTROPHILS % (MAN) 94 % (42-78); TOTAL CELLS COUNTED 100
[2017-10-25 06:05] LABS: TOXIC GRANULATION 2+
[2017-10-25 06:06] LABS: ANISOCYTOSIS SLIGHT; BURR CELLS 1+; OVALOCYTES 1+; PLATELET CLUMPS PRESENT; PLATELET COMMENT ADEQUATE; POIKILOCYTOSIS 1+
[2017-10-25 08:27] LABS: HEMATOCRIT 28.5 % (36.0-47.0); HEMOGLOBIN 9.7 g/dL (12.0-15.5); MEAN CORPUSCULAR HEMOGLOBIN 26.6 pg (27.0-33.4); MEAN CORPUSCULAR VOLUME 78 fl (80-97); PLATELET COUNT 377 10^3/uL (150-450); RED BLOOD COUNT 3.65 10^6/uL (3.72-5.28); RED CELL DISTRIBUTION WIDTH 14.8 % (11.5-14.0); WHITE BLOOD COUNT 21.8 10^3/uL (4.0-10.5)
[2017-10-25] MEDS: GUAIFENESIN 600 MG TABLET.SA PO SCH ×2 (11:02→21:08)
[2017-10-25] MEDS: INSULIN LISPRO 100 UNIT/ML 3 ML VIAL SUBCUT PRN ×2 (11:02→22:50)
[2017-10-25] MEDS: LEVOFLOXACIN 750 MG TABLET PO SCH (11:03)
--- NOTE | 2017-10-25 11:26 | PDOC PROGRESS REPORT ---
Subjective Subjective:: The patient was admitted with complications of influenza that she had developed about 1 week prior to admission. She has bilateral pneumonia and had evidence of severe sepsis and bilateral pneumonia on imaging studies at the time of admission. She was initially quite hypotensive but responded nicely to IV fluid boluses as well as stress dose steroids. She also was initially on BiPAP but has since been weaned off and currently stable on oxygen at 4L. She was not oxygen dependent prior to this hospitalization. Her past medical history is significant for COPD/asthma. She has type 2 diabetes mellitus and she used to smoke in the past. Today when I saw her she is resting in the bed. She states that she continues to feel quite poorly and really has not noticed a change since yesterday. She states that she gets extremely weak and winded whenever she tries to get up and move. She states that she is worried because she has been having some hallucinations. She understands that these are not real but she is having them more more frequently. She denies fever chills. She has chest pain from frequent coughing. She feels short of breath. She has had no nausea or vomiting. She has no appetite but is trying to drink some fluids. No nausea or vomiting. She did develop diarrhea yesterday afternoon. She has not had any diarrhea this morning. No frequency or hematuria no dysuria Reason For Visit: SEPSIS,COPD DIABETES ACIDOSIS,PNEUOMONIA Physical Exam Vital Signs: Temp Pulse Resp BP Pulse Ox 97.9 F 83 18 109/35 L 94 10/25/17 08:15 10/25/17 08:15 10/25/17 08:15 10/25/17 08:15 10/25/17 08:15 Pulse Oximeter Continuous Start: 10/23/17 22: 09 Freq: RTQ4 Status: Active Document 10/25/17 07:43 HCR (Rec: 10/25/17 09:47 HCR [email or web address]) Pulse Oximetry Assessment Oxygen Saturation (92-100) 98 Oxygen Flow Rate (L/min) 3 Oxygen Delivery Method Nasal Cannula Equipment Usage Equipment in Use Continuous SpO2 Machine # 3 Intake & Output 10/24/17 10/25/17 10/26/17 06:59 06:59 06:59 Intake Total 20 1679 Output Total 0 1200 Balance 20 479 Weight 78.9 kg 78.9 kg General appearance: PRESENT: well-developed, well-nourished, other - She is acutely ill appearing. She is wearing oxygen via nasal cannula Head exam: PRESENT: atraumatic, normocephalic Eye exam: ABSENT: scleral icterus Mouth exam: PRESENT: moist, tongue midline Neck exam: PRESENT: thyromegaly Respiratory exam: PRESENT: rhonchi, other - She has scattered coarse rhonchi throughout all lung gutierrez anteriorly Cardiovascular exam: PRESENT: tachycardia. ABSENT: diastolic murmur, rubs, systolic murmur GI/Abdominal exam: PRESENT: normal bowel sounds, soft. ABSENT: distended, guarding, mass, organolmegaly, rebound, tenderness Rectal exam: PRESENT: deferred Extremities exam: PRESENT: full ROM. ABSENT: calf tenderness, clubbing, pedal edema Neurological exam: PRESENT: alert, awake, oriented to person, oriented to place , oriented to time, oriented to situation, CN II-XII grossly intact. ABSENT: motor sensory deficit Psychiatric exam: PRESENT: other - The patient is alert and oriented but admits to having hallucinations that are happening more frequently. Skin exam: PRESENT: dry, intact, warm. ABSENT: cyanosis, rash Results Laboratory Results: 10/25/17 04:35 10/25/17 04:35 10/24/17 10/25/17 10/25/17 10:07 03:15 04:35 WBC 21.8 H 24.0 H RBC 3.65 L 3.57 L Hgb 9.7 L 9.4 L Hct 28.5 L 28.0 L MCV 78 L 79 L MCH 26.6 L 26.4 L MCHC 34.0 33.5 RDW 14.8 H 14.9 H Plt Count 377 403 Seg Neutrophils % Not Reportable Lymphocytes % Not Reportable Monocytes % Not Reportable Eosinophils % Not Reportable Basophils % Not Reportable Absolute Neutrophils Not Reportable Absolute Lymphocytes Not Reportable Absolute Monocytes Not Reportable Absolute Eosinophils Not Reportable Absolute Basophils Not Reportable Sodium Potassium Chloride Carbon Dioxide Anion Gap BUN Creatinine Est GFR ( Amer) Est GFR (Non-Af Amer) Glucose Serum Osmolality 283 Calcium Magnesium Total Bilirubin AST ALT Alkaline Phosphatase Total Protein Albumin 10/25/17 04:35 WBC RBC Hgb Hct MCV MCH MCHC RDW Plt Count Seg Neutrophils % Lymphocytes % Monocytes % Eosinophils % Basophils % Absolute Neutrophils Absolute Lymphocytes Absolute Monocytes Absolute Eosinophils Absolute Basophils Sodium 124.9 L Potassium 3.7 Chloride 93 L Carbon Dioxide 16 L Anion Gap 16 BUN 55 H Creatinine 1.90 H Est GFR ( Amer) 33 L Est GFR (Non-Af Amer) 28 L Glucose 251 H Serum Osmolality Calcium 8.6 Magnesium 2.2 Total Bilirubin 0.3 AST 20 ALT 38 Alkaline Phosphatase 117 Total Protein 4.9 L Albumin 2.6 L 10/24/17 04:52 NT-Pro-B Natriuret Pep 1830 H Impressions: Chest X-Ray 10/23/17 20:11 IMPRESSION: Extensive pneumonia in the right lung. Assessment & Plan - Diagnosis (1) Severe sepsis Is this a current diagnosis for this admission?: Yes Plan: The patient had evidence of severe sepsis at the time of admission with marked leukocytosis, hypotension, tachycardia, tachypnea with evidence of respiratory failure requiring BiPAP therapy. She also has acute renal failure and elevated liver function tests. The patient's blood pressure fortunately has stabilized with fluids and stress dose steroids. Her blood pressure is improved but still on the low side. I am going to cut her stress dose steroids down to 50 mg every 8 hours. However the patient is not feeling any better and is now having hallucinations as well. Therapy will be outlined below. (2) Acute respiratory failure Is this a current diagnosis for this admission?: Yes Plan: The patient was initially on BiPAP but is been weaned off and is resting comfortably on oxygen at 4 L. We will continue to treat her pneumonia as outlined below. We will continue aggressive breathing treatments. (3) Influenza Is this a current diagnosis for this admission?: Yes Plan: She is completed a course of Tamiflu. Her pneumonia is a complication of the flu (4) Pneumonia Qualifiers: Pneumonia type: due to unspecified organism Laterality: right Lung location: unspecified part of lung Qualified Code(s): J18.9 - Pneumonia, unspecified organism Is this a current diagnosis for this admission?: Yes Plan: Concerns for community-acquired pathogens such as gram positives and atypicals. She did receive IV Rocephin and Zithromax in the emergency room. Yesterday she was started on IV Levaquin. However this could be a staph pneumonia which is common after influenza. I am going to add IV Zyvox and Zosyn to her regimen. I will swab the patient for MRSA. If she is negative the Zyvox can be stopped. (5) Acute renal failure Qualifiers: Acute renal failure type: unspecified Qualified Code(s): N17.9 - Acute kidney failure, unspecified Is this a current diagnosis for this admission?: Yes Plan: Her baseline creatinine is 0.9. Her creatinine at admission was 3.39. Currently her acute renal failure is improving and down to 1.9 today. Her acute renal failure is due ATN due to severe sepsis. We will check a chemistry panel in the morning. Her creatinine continues to improve so I will hold off getting nephrology involved. Continue IV fluids. (6) Hyponatremia Is this a current diagnosis for this admission?: Yes Plan: Sodium is significantly low likely due to acute renal failure and acute illness. It is quite slow to improve. Continue IV fluid hydration and a chemistry panel will be checked in the morning. (7) Metabolic acidosis Is this a current diagnosis for this admission?: Yes Plan: Secondary to acute renal failure and sepsis. Her CO2 level is still 16. It has not worsened. Again she will have a chemistry panel drawn tomorrow (8) Elevated liver function tests Is this a current diagnosis for this admission?: Yes Plan: Likely secondary to acute illness and sepsis. (9) Anemia Is this a current diagnosis for this admission?: Yes Plan: The patient had a precipitous drop in her hemoglobin since the time of admission likely due to hemodilution. Her hemoglobin is stable (10) Diarrhea Is this a current diagnosis for this admission?: Yes Plan: She tested negative for Clostridium difficile. Continue IV fluids. Her diarrhea is usually likely due to antibiotics and her acute illness. (11) Leukocytosis Is this a current diagnosis for this admission?: Yes Plan: White blood cell count had risen today. I do believe this is due to her stress dose steroids rather than worsening infection. I am going to cut her stress dose steroids down to 50 mg every 8 hours (12) Thrombocytosis Is this a current diagnosis for this admission?: Yes Plan: Likely reactive to her acute illness (13) Full code status Is this a current diagnosis for this admission?: Yes - Time Time Spent with patient: 25-34 minutes - Inpatient Certification Medical Necessity: Need Close Monitoring Due to Risk of Patient Decompensation - Inpatient hospitalization remains necessary. The patient with severe sepsis due to pneumonia as a complication of influenza. She still requiring parenteral antibiotics and fluids. She is having hallucination and her antibiotic therapy needs to be broadened today. Timing of disposition will be determined by her clinical course, Need For IV Fluids, Need for IV Antibiotics, Other
[2017-10-25] MEDS ORDERED: LINEZOLID 600 MG RTU 300 ML IV ONE (13:00)
--- NOTE | 2017-10-25 13:38 | RADIOLOGY REPORT (SQ) ---
EXAM DESCRIPTION: CT CHEST WITHOUT COMPLETED DATE/TIME: 10/25/2017 1:00 pm REASON FOR STUDY: pneumonia, not improving COMPARISON: Radiograph 10/23/2017 TECHNIQUE: CT scan performed of the chest without intravenous contrast. Images reviewed with lung, soft tissue and bone windows. Reconstructed coronal and sagittal MPR images reviewed. All images st ored on PACS. All CT scanners at this facility use dose modulation, iterative reconstruction, and/or weight based d osing when appropriate to reduce radiation dose to as low as reasonably achievable (ALARA). [facility]: Dose Right [facility]: CareDose [facility]: Dose Right [facility]: Teradose 4D [facility]: Smart Tykli RADIATION DOSE: CT Rad equipment meets quality standard of care and radiation dose reduction techniq ues were employed. CTDIvol: 7.7 mGy. DLP: 266 mGy-cm. mGy. LIMITATIONS: No technical limitations. FINDINGS: LUNGS AND PLEURA: Extensive infiltrates are present in the right upper lobe and lower lobe , sparing the middle lobe. Fairly dense consolidation is present in the retro hilar aspect of the ri ght lower lobe. An infrahilar/retrohilar mass cannot be excluded. The left lung is free of infiltra maida. HILAR AND MEDIASTINAL STRUCTURES: Cannot exclude a mass arising from the inferior right hilum. See a alli. HEART AND VASCULAR STRUCTURES: No aneurysm. No pericardial effusion. UPPER ABDOMEN: No significant findings. Limited exam. THYROID AND OTHER SOFT TISSUES: No masses. No adenopathy. BONES: No significant finding. HARDWARE: None in the chest. OTHER: No other significant findings. IMPRESSION: Extensive pneumonia in the right lung as described. There appears to be fairly dense co nsolidation in the right lower lobe. A mass cannot be excluded on the right as described. Follow-up after treatment. TECHNICAL DOCUMENTATION: JOB ID: [id number] Quality ID # [id number]: Final reports with documentation of one or more dose reduction techniques (e.g., Au tomated exposure control, adjustment of the mA and/or kV according to patient size, use of iterative reconstruction technique) 2010 [employer]- All Rights Reserved Reading location - IP/workstation name: [email or web address]
[2017-10-25] MEDS: PIPERACILLIN SODIUM/TAZOBACTAM 3.375 GM in NORMAL SALINE 100 ML IV SCH ×2 (15:05→21:08)
[2017-10-25] MEDS: LINEZOLID 300 ML IV SCH (21:08)
[2017-10-26] MEDS: IPRATROPIUM/ALBUTEROL 0.5-2.5 MG/3 ML AMPUL NEB SCH ×4 (01:29→19:46)
[2017-10-26] MEDS: PIPERACILLIN SODIUM/TAZOBACTAM 3.375 GM in NORMAL SALINE 100 ML IV SCH ×4 (03:50→22:11)
[2017-10-26 05:44] LABS: ANION GAP 13 (5-19); BLOOD UREA NITROGEN 42 mg/dL (7-20); CALCIUM 9.4 mg/dL (8.4-10.2); CARBON DIOXIDE 20 mmol/L (22-30); CHLORIDE 102 mmol/L (98-107); GLUCOSE 359 mg/dL (75-110); POTASSIUM 3.4 mmol/L (3.6-5.0); SODIUM 134.8 mmol/L (137-145)
[2017-10-26] MEDS: HYDROCORTISONE SOD SUCCINATE INJ/PF 100 MG/2 ML SDV IV SCH ×3 (06:43→22:11)
[2017-10-26] MEDS: INSULIN LISPRO 100 UNIT/ML 3 ML VIAL SUBCUT PRN ×4 (06:43→22:26)
[2017-10-26] MEDS: HEPARIN SOD (PORCINE) 5,000 UNIT/ML 1 ML SYRINGE SUBCUT SCH ×3 (06:43→22:12)
[2017-10-26] MEDS: GUAIFENESIN 600 MG TABLET.SA PO SCH ×2 (09:42→22:11)
[2017-10-26] MEDS: LINEZOLID 300 ML IV SCH (09:42)
[2017-10-26] MEDS ORDERED: LEVOFLOXACIN 750 MG TABLET PO SCH (12:00)
--- NOTE | 2017-10-26 15:09 | PDOC PROGRESS REPORT ---
Subjective Progress Note for:: 10/26/17 Subjective:: Patient admitted with the consultations of influenza including bilateral pneumonia as well as severe sepsis. She was very hypotensive event that she still remains confused. She apparently is having some hallucinations today. Her son is in the room with her. Next Reason For Visit: SEPSIS,COPD DIABETES ACIDOSIS,PNEUOMONIA Physical Exam Vital Signs: Temp Pulse Resp BP Pulse Ox 97.7 F 72 18 147/85 H 99 10/26/17 11:02 10/26/17 13:24 10/26/17 13:24 10/26/17 11:02 10/26/17 13:24 Pulse Oximeter Continuous Start: 10/23/17 22: 09 Freq: RTQ4 Status: Active Document 10/26/17 13:24 J (Rec: 10/26/17 14:33 JDR [email or web address]) Pulse Oximetry Assessment Oxygen Saturation (92-100) 99 Oxygen Flow Rate (L/min) 2 Oxygen Delivery Method Nasal Cannula Fraction of Inspired Oxygen (FIO2) 28 Equipment Usage Equipment in Use Continuous SpO2 Machine # 3 Intake & Output 10/25/17 10/26/17 10/27/17 06:59 06:59 06:59 Intake Total 1679 2634 300 Output Total 1200 600 Balance 479 2034 300 Weight 78.9 kg 73.8 kg General appearance: PRESENT: no acute distress Head exam: PRESENT: atraumatic Eye exam: PRESENT: conjunctiva pink, EOMI, PERRLA. ABSENT: scleral icterus Neck exam: ABSENT: carotid bruit, JVD, lymphadenopathy, thyromegaly Respiratory exam: PRESENT: clear to auscultation aaliyah. ABSENT: rales, rhonchi, wheezes Cardiovascular exam: PRESENT: RRR. ABSENT: diastolic murmur, rubs, systolic murmur GI/Abdominal exam: PRESENT: normal bowel sounds, soft. ABSENT: distended, guarding, mass, organolmegaly, rebound, tenderness Rectal exam: PRESENT: deferred Neurological exam: PRESENT: alert, awake - Patient is confused Psychiatric exam: PRESENT: appropriate affect Results Laboratory Results: 10/25/17 04:35 10/26/17 05:03 10/26/17 05:03 Sodium 134.8 L Potassium 3.4 L Chloride 102 Carbon Dioxide 20 L Anion Gap 13 BUN 42 H Creatinine 1.39 H Est GFR ( Amer) 48 L Est GFR (Non-Af Amer) 40 L Glucose 359 H Calcium 9.4 Magnesium 2.2 10/24/17 04:52 NT-Pro-B Natriuret Pep 1830 H Impressions: Chest X-Ray 10/23/17 20:11 IMPRESSION: Extensive pneumonia in the right lung. Chest CT 10/25/17 00:00 IMPRESSION: Extensive pneumonia in the right lung as described. There appears to be fairly dense consolidation in the right lower lobe. A mass cannot be excluded on the right as described. Follow-up after treatment. Assessment & Plan - Time Time Spent with patient: 15-24 minutes Smoking Cessation Education: 3 to 10 minutes Medications reviewed and adjusted accordingly: Yes Anticipated discharge: Home Within: within 72 hours - Inpatient Certification Based on my medical assessment, after consideration of the patient's comorbidities, presenting symptoms, or acuity I expect that the services needed warrant INPATIENT care.: Yes Medical Necessity: Need for IV Antibiotics - Plan Summary Plan Summary: 1.Severe sepsis including leukocytosis, hypotension and tachycardia tachypnea and respiratory failure on admission. This is slowly resolving 2.acute respiratory failure on intermittent BiPAP will continue with oxygen support. 3. Metabolic encephalopathy likely multifactorial we will continue supportive care 4. Pneumonia of the right lung likely community-acquired pneumonia. Patient is on Levaquin, Zyvox as well as Zosyn. I will de-escalate this medications and streamline them #5 hallucinations possibly drug-induced will reevaluate her medications and adjust as needed. 6 acute renal failure likely from the acute infection. Creatinine was 3.3 and this was thought to be likely due to ATN. 7. Acute transaminitis likely secondary to acute infection 8. Anemia with depressed precipitous drop in hemoglobin likely due to hemodilution 9. Diarrhea possibly antibiotic related induced. C. difficile toxin is negative
[2017-10-27] MEDS: IPRATROPIUM/ALBUTEROL 0.5-2.5 MG/3 ML AMPUL NEB SCH ×4 (01:55→20:01)
[2017-10-27] MEDS: PIPERACILLIN SODIUM/TAZOBACTAM 3.375 GM in NORMAL SALINE 100 ML IV SCH ×4 (03:55→20:21)
[2017-10-27 05:27] LABS: HEMATOCRIT 26.9 % (36.0-47.0); HEMOGLOBIN 9.1 g/dL (12.0-15.5); MEAN CORPUSCULAR HEMOGLOBIN 26.9 pg (27.0-33.4); MEAN CORPUSCULAR HGB CONC 33.9 g/dL (32.0-36.0); MEAN CORPUSCULAR VOLUME 79 fl (80-97); PLATELET COUNT 404 10^3/uL (150-450); RED BLOOD COUNT 3.39 10^6/uL (3.72-5.28); RED CELL DISTRIBUTION WIDTH 14.7 % (11.5-14.0); WHITE BLOOD COUNT 9.2 10^3/uL (4.0-10.5)
[2017-10-27 05:52] LABS: ANION GAP 8 (5-19); BLOOD UREA NITROGEN 32 mg/dL (7-20); CALCIUM 9.3 mg/dL (8.4-10.2); CARBON DIOXIDE 25 mmol/L (22-30); CHLORIDE 103 mmol/L (98-107); GLUCOSE 212 mg/dL (75-110); POTASSIUM 3.7 mmol/L (3.6-5.0); SODIUM 136.2 mmol/L (137-145)
[2017-10-27 05:53] LABS: ABSOLUTE LYMPHOCYTES# (MANUAL) 1.7 10^3/uL (0.5-4.7); ABSOLUTE MONOCYTES # (MANUAL) 0.6 10^3/uL (0.1-1.4); BAND NEUTROPHILS % (MANUAL) 3 % (3-5); BASOPHILS % (MANUAL) 0 % (0-2); EOSINOPHILS % (MANUAL) 0 % (0-6); LYMPHOCYTES % (MANUAL) 18 % (13-45); MONOCYTES % (MANUAL) 6 % (3-13); SEGMENTED NEUTROPHILS % (MAN) 71 % (42-78); TOTAL CELLS COUNTED 100
[2017-10-27 05:54] LABS: ANISOCYTOSIS SLIGHT; PLATELET COMMENT ADEQUATE; TOXIC GRANULATION SLIGHT
[2017-10-27 05:56] LABS: METAMYELOCYTES % (MANUAL) 2 % (0)
[2017-10-27] MEDS: HEPARIN SOD (PORCINE) 5,000 UNIT/ML 1 ML SYRINGE SUBCUT SCH ×3 (06:23→22:05)
[2017-10-27] MEDS: INSULIN LISPRO 100 UNIT/ML 3 ML VIAL SUBCUT PRN ×3 (09:18→22:06)
[2017-10-27] MEDS: HYDROCORTISONE SOD SUCCINATE INJ/PF 100 MG/2 ML SDV IV SCH (10:53)
[2017-10-27] MEDS: GUAIFENESIN 600 MG TABLET.SA PO SCH ×2 (10:53→22:03)
--- NOTE | 2017-10-27 15:28 | PDOC PROGRESS REPORT ---
Subjective Progress Note for:: 10/27/17 Subjective:: Patient admitted with the influenza including bilateral pneumonia as well as severe sepsis. She is improved. Reason For Visit: SEPSIS,COPD DIABETES ACIDOSIS,PNEUOMONIA Physical Exam Vital Signs: Temp Pulse Resp BP Pulse Ox 98.0 F 68 14 147/76 H 94 10/27/17 12:39 10/27/17 14:14 10/27/17 14:14 10/27/17 12:39 10/27/17 14:14 Pulse Oximeter Continuous Start: 10/23/17 22: 09 Freq: RTQ4 Status: Active Document 10/27/17 07:55 [facility] (Rec: 10/27/17 08:17 [facility] [email or web address]) Pulse Oximetry Assessment Oxygen Saturation (92-100) 96 Oxygen Flow Rate (L/min) 2 Oxygen Delivery Method Nasal Cannula Equipment Usage Equipment in Use Continuous SpO2 Machine # N-[id number] Intake & Output 10/26/17 10/27/17 10/28/17 06:59 06:59 06:59 Intake Total 2634 2180 553 Output Total 600 Balance 2034 2180 553 Weight 73.8 kg 76.6 kg General appearance: PRESENT: no acute distress Head exam: PRESENT: atraumatic Eye exam: PRESENT: conjunctiva pink, EOMI, PERRLA. ABSENT: scleral icterus Neck exam: ABSENT: carotid bruit, JVD, lymphadenopathy, thyromegaly Respiratory exam: PRESENT: clear to auscultation aaliyah. ABSENT: rales, rhonchi, wheezes Cardiovascular exam: PRESENT: RRR. ABSENT: diastolic murmur, rubs, systolic murmur Pulses: PRESENT: normal dorsalis pedis pul GI/Abdominal exam: PRESENT: normal bowel sounds, soft. ABSENT: distended, guarding, mass, organolmegaly, rebound, tenderness Rectal exam: PRESENT: deferred Extremities exam: PRESENT: full ROM. ABSENT: calf tenderness, clubbing, pedal edema Neurological exam: PRESENT: alert, awake, oriented to person, oriented to place , oriented to time Psychiatric exam: PRESENT: appropriate affect, normal mood. ABSENT: homicidal ideation, suicidal ideation Skin exam: PRESENT: dry, intact, warm. ABSENT: cyanosis, rash Results Laboratory Results: 10/27/17 04:56 10/27/17 04:56 10/27/17 10/27/17 04:56 04:56 WBC 9.2 RBC 3.39 L Hgb 9.1 L Hct 26.9 L MCV 79 L MCH 26.9 L MCHC 33.9 RDW 14.7 H Plt Count 404 Seg Neutrophils % Not Reportable Lymphocytes % Not Reportable Monocytes % Not Reportable Eosinophils % Not Reportable Basophils % Not Reportable Absolute Neutrophils Not Reportable Absolute Lymphocytes Not Reportable Absolute Monocytes Not Reportable Absolute Eosinophils Not Reportable Absolute Basophils Not Reportable Sodium 136.2 L Potassium 3.7 Chloride 103 Carbon Dioxide 25 Anion Gap 8 BUN 32 H Creatinine 1.07 Est GFR ( Amer) > 60 Est GFR (Non-Af Amer) 54 L Glucose 212 H Calcium 9.3 10/24/17 04:52 NT-Pro-B Natriuret Pep 1830 H Impressions: Chest X-Ray 10/23/17 20:11 IMPRESSION: Extensive pneumonia in the right lung. Chest CT 10/25/17 00:00 IMPRESSION: Extensive pneumonia in the right lung as described. There appears to be fairly dense consolidation in the right lower lobe. A mass cannot be excluded on the right as described. Follow-up after treatment. Assessment & Plan - Plan Summary Plan Summary: 1.Severe sepsis including leukocytosis, hypotension and tachycardia tachypnea and respiratory failure on admission. This is resolved. DC Steroids as this may have also contributed to psychosis 2.acute respiratory failure -continue with oxygen support. 3. Metabolic encephalopathy likely multifactorial -resolved 4. Pneumonia of the right lung likely community-acquired pneumonia. Patient is on Zosyn. Will change to PO abx at DC #5 hallucinations possibly drug-induced - resolved 6 acute renal failure likely from the acute infection. Creatinine was 3.3 and this was thought to be likely due to ATN. 7. Acute transaminitis likely secondary to acute infection-resolved 8. Anemia with precipitous drop in hemoglobin likely due to hemodilution 9. Diarrhea possibly antibiotic related. C. difficile toxin is negative, resolved
[2017-10-28] MEDS: IPRATROPIUM/ALBUTEROL 0.5-2.5 MG/3 ML AMPUL NEB SCH ×3 (02:10→14:21)
[2017-10-28] MEDS: PIPERACILLIN SODIUM/TAZOBACTAM 3.375 GM in NORMAL SALINE 100 ML IV SCH (03:18)
[2017-10-28] MEDS: ACETAMINOPHEN 325 MG TABLET PO PRN (03:28)
[2017-10-28] MEDS: HEPARIN SOD (PORCINE) 5,000 UNIT/ML 1 ML SYRINGE SUBCUT SCH ×2 (05:34→14:10)
[2017-10-28] MEDS ORDERED: AMOXICILLIN TR/POT CLAVULANATE 500-125 MG TAB PO SCH (07:30)
[2017-10-28] MEDS: INSULIN LISPRO 100 UNIT/ML 3 ML VIAL SUBCUT PRN (08:11)
[2017-10-28] MEDS: GUAIFENESIN 600 MG TABLET.SA PO SCH (14:10)
[2017-10-28 14:17] VITALS: BP 158/69
--- NOTE | 2017-10-28 18:39 | PDOC DISCHARGE SUMMARY ---
General - Admit/Disc Date/PCP Admission Date/Primary Care Provider: 10/23/17 22:34 Discharge Date: 10/28/17 - Discharge Diagnosis (1) Severe sepsis Is this a current diagnosis for this admission?: Yes (2) Acute respiratory failure Is this a current diagnosis for this admission?: Yes (3) Acute renal failure Is this a current diagnosis for this admission?: Yes (4) Anemia Is this a current diagnosis for this admission?: Yes (5) Elevated liver function tests Is this a current diagnosis for this admission?: Yes (6) Metabolic acidosis Is this a current diagnosis for this admission?: Yes (7) Pneumonia Is this a current diagnosis for this admission?: Yes (8) Thrombocytosis Is this a current diagnosis for this admission?: Yes - Additional Information Resuscitation Status: Full Code Discharge Diet: Diabetic Discharge Activity: Activity As Tolerated Prescriptions: Amox Tr/Potassium Clavulanate [Augmentin "500" Tablet] 1 tab PO Q8 3 Days #9 tablet Home Medications: Aspirin 81 mg PO DAILY PRN 04/02/14 Esomeprazole Mag Trihydrate [Nexium] 40 mg PO QHS 04/02/14 Krill/[place]-3/Dha/Epa/Lipids [Krill Oil 300 mg Softgel] 1 each PO DAILY Sertraline HCl 100 mg PO DAILY 04/02/14 Albuterol Sulfate [Proair HFA Inhalation Aerosol 8.5 gm MDI] 2 puff IH Q4HP PRN 10/24/17 Cetirizine HCl [Zyrtec] 10 mg PO DAILY 10/24/17 Ergocalciferol (Vitamin D2) [Vitamin D2] 50,000 unit PO Q7D 10/24/17 Etodolac 400 mg PO BID 10/24/17 Fenofibrate Nanocrystallized [Tricor 145 mg Tablet] 145 mg PO QHS 10/24/17 Ferrous Sulfate [Feosol 325 mg Tablet] 325 mg PO BID 10/24/17 Fluticasone Propionate [Flonase Nasal Baird 50 Mcg/Baird 16 gm] 2 sprays NASL DAILY 10/24/17 Ipratropium [place] [Atrovent 0.06% Nasal Baird] 2 spray NASL BID 10/24/17 Levothyroxine Sodium [Synthroid 0.112 mg Tablet] 112 mcg PO DAILY 10/24/17 Linagliptin [Tradjenta] 5 mg PO DAILY 10/24/17 Meloxicam [Mobic] 15 mg PO DAILY 10/24/17 Metformin HCl [Metformin HCl ER] 1,000 mg PO BID 10/24/17 Amox Tr/Potassium Clavulanate [Augmentin "500" Tablet] 1 tab PO Q8 3 Days #9 tablet 10/28/17 History of Present Illness Patient complains of: Difficulty breathing and shortness of breath History of Present Illness: MATTIE LAI is a 51 year old female his patient was admitted with fever and diarrhea was found to be hypotensive on initial presentation. She was treated with triple antibiotics including Zosyn and Levaquin and Zyvox. She was also hypoxemic and required oxygen support. She was treated with them stress dose of Hospital Course Hospital Course: This patient was admitted with fever and diarrhea was found to be hypotensive on initial presentation. She was treated with triple antibiotics including Zosyn and Levaquin and Zyvox. She was also hypoxemic and required oxygen support. She was treated with them stress dose of steroids due to the sepsis which was thought to be secondary to pneumonia superimposed on a recent influenza infection. CT scan of the chest revealed extensive pneumonia in the right lung with fairly dense consolidation in the right lower lobe. A mass cannot be excluded on the right and instructed patient on the need to obtain a follow-up chest CT scan by her PCP. Patient did have periods of confusion which was thought to be secondary to drug- induced encephalopathy and once her medications were de-escalated the encephalopathy cleared. She also did make a remarkable recovery with a white count improving from 27.9-9.2 in about 96 hours. Initial creatinine was 3.36 on admission and this improved to 1 and BUN was 55 and this also increased improved to 32 by discharge. Initial sodium was also found to be 124 and this increased to 136 at discharge. Patient did make a pretty rapid recovery and she has been advised to follow-up with her primary care physician Physical Exam Vital Signs: Temp Pulse Resp BP Pulse Ox 97.9 F 70 16 158/69 H 89 L 10/28/17 14:12 10/28/17 14:21 10/28/17 14:21 10/28/17 14:12 10/28/17 14:21 Pulse Oximeter Continuous Start: 10/23/17 22: 09 Freq: RTQ4 Status: Complete Document 10/28/17 02:25 [facility] (Rec: 10/28/17 02:25 [facility] [email or web address]) Pulse Oximetry Assessment Equipment Usage Equipment Standby Continuous SpO2 Machine # 3 Intake & Output 10/27/17 10/28/17 10/29/17 06:59 06:59 06:59 Intake Total 2179 Balance 2179 Weight 76.6 kg 76.7 kg General appearance: PRESENT: no acute distress Head exam: PRESENT: atraumatic Neck exam: ABSENT: carotid bruit, JVD, lymphadenopathy, thyromegaly Respiratory exam: PRESENT: clear to auscultation aaliyah, symmetrical, unlabored. ABSENT: wheezes Cardiovascular exam: PRESENT: RRR. ABSENT: diastolic murmur, rubs, systolic murmur GI/Abdominal exam: PRESENT: normal bowel sounds, soft. ABSENT: distended, guarding, mass, organolmegaly, rebound, tenderness Rectal exam: PRESENT: deferred Musculoskeletal exam: PRESENT: ambulatory Neurological exam: PRESENT: alert, awake, oriented to person, oriented to place , oriented to time, oriented to situation, reflexes normal Psychiatric exam: PRESENT: appropriate affect, normal mood. ABSENT: homicidal ideation, suicidal ideation Results Laboratory Results: 10/27/17 04:56 10/27/17 04:56 10/24/17 04:52 NT-Pro-B Natriuret Pep 1830 H Impressions: Chest X-Ray 10/23/17 20:11 IMPRESSION: Extensive pneumonia in the right lung. Chest CT 10/25/17 00:00 IMPRESSION: Extensive pneumonia in the right lung as described. There appears to be fairly dense consolidation in the right lower lobe. A mass cannot be excluded on the right as described. Follow-up after treatment. Qualifiers - * PATEINT BEING DISCHARGED WITH ANY OF THE FOLLOWING DIAGNOSIS?: No Plan Discharge Plan: CT Chest should be repeated after completion of antibiotics due to the questionable mass of the right lung noted. Time Spent: Greater than 30 Minutes
== END 2017-10-28 14:41 | disposition home or self-care (01) | DRG 871 ==
LOC: ER 18:59 → EH 22:34 → 3W 10-24 01:25
PROVIDERS: ADMIT Internal Medicine; ATTEND Internal Medicine
PROC: 5A09357 Assistance with Respiratory Ventilation, Less than 24 Consecutive Hours, Continuous Positive Airway Pressure (ICD-10-PCS; principal; 2017-10-23)
PROC: 3E0F73Z Introduction of Anti-inflammatory into Respiratory Tract, Via Natural or Artificial Opening (ICD-10-PCS; 2017-10-24)
DX: A41.89 Other specified sepsis (principal); J96.00 Acute respiratory failure, unspecified whether with hypoxia or hypercapnia; N17.0 Acute kidney failure with tubular necrosis; G92 Toxic encephalopathy; J11.00 Influenza due to unidentified influenza virus with unspecified type of pneumonia; I95.9 Hypotension, unspecified; E87.2 Acidosis; E87.1 Hypo-osmolality and hyponatremia; K52.1 Toxic gastroenteritis and colitis; J44.0 Chronic obstructive pulmonary disease with (acute) lower respiratory infection; D47.3 Essential (hemorrhagic) thrombocythemia; E11.9 Type 2 diabetes mellitus without complications; R65.20 Severe sepsis without septic shock; D64.9 Anemia, unspecified; T50.905A Adverse effect of unspecified drugs, medicaments and biological substances, initial encounter; M19.90 Unspecified osteoarthritis, unspecified site; R79.89 Other specified abnormal findings of blood chemistry; T36.95XA Adverse effect of unspecified systemic antibiotic, initial encounter; E86.0 Dehydration; Z87.891 Personal history of nicotine dependence; Z79.899 Other long term (current) drug therapy; Z79.82 Long term (current) use of aspirin; Z88.6 Allergy status to analgesic agent; Z88.2 Allergy status to sulfonamides; Z88.8 Allergy status to other drugs, medicaments and biological substances; Z83.6 Family history of other diseases of the respiratory system
CPT/HCPCS: 36415; 71046; 71250; 80048; 80053; 80076; 82533; 82550; 82553; 82803; 82962; 83605; 83735; 83880; 83930; 83935; 84300; 84484; 85025; 85027; 87040; 87077; 87186; 87493; 93005; 93010; 94640; 94660; 94762; 94799; 96365; 96368; 96375; 99291; J0456; J0696; J1644; J1720; J1815; J1885; J1956; J2020; J2405; J2543; J3370; J3490; J7030; J7060; J7620

== ENCOUNTER → 2017-11-06 | Outpatient (CLI) | payer OTHER ==
--- NOTE | 2017-11-06 14:57 | RADIOLOGY REPORT (SQ) ---
EXAM DESCRIPTION: CT CHEST WITHOUT COMPLETED DATE/TIME: 11/06/2017 2:44 pm REASON FOR STUDY: PNEUMONIA, UNSPECIFIED J18.9 PNEUMONIA, UNSPECIFIED ORGANISM COMPARISON: 10/25/2017. TECHNIQUE: CT scan performed of the chest without intravenous contrast. Images reviewed with lung, soft tissue and bone windows. Reconstructed coronal and sagittal MPR images reviewed. All images st ored on PACS. All CT scanners at this facility use dose modulation, iterative reconstruction, and/or weight based d osing when appropriate to reduce radiation dose to as low as reasonably achievable (ALARA). [facility]: Dose Right [facility]: CareDose [facility]: Dose Right [facility]: Teradose 4D [facility]: [employer] RADIATION DOSE: CT Rad equipment meets quality standard of care and radiation dose reduction techniq ues were employed. CTDIvol: 7.1 mGy. DLP: 263 mGy-cm. mGy. LIMITATIONS: No technical limitations. FINDINGS: LUNGS AND PLEURA: Persistent but considerably improved airspace disease with consolidation in the right lower lobe. Areas of mild persistent but improving interstitial opacity, predominantly reticular densities in the right upper lobe and right lower lobe. There is a small right pleural ef fusion present on today's study. Left lung clear. Small left effusion has resolved. HILAR AND MEDIASTINAL STRUCTURES: Small mediastinal and probable right hilar region nodes. No develo ping mass, abnormal gas or esophageal pathology. HEART AND VASCULAR STRUCTURES: Normal heart size. No pericardial effusion. No aortic aneurysm. Mil d coronary calcification. UPPER ABDOMEN: No significant findings. Limited exam. THYROID AND OTHER SOFT TISSUES: No masses. No adenopathy. BONES: No significant finding. HARDWARE: None in the chest. OTHER: No other significant findings. IMPRESSION: 1. Improving right pneumonia. Considerable airspace disease remains in the right lower lobe with improving interstitial changes in the right upper lobe and right lower lobe. There is a s mall effusion which is now present on the right. Left effusion has resolved. TECHNICAL DOCUMENTATION: JOB ID: [id number] Quality ID # [id number]: Final reports with documentation of one or more dose reduction techniques (e.g., Au tomated exposure control, adjustment of the mA and/or kV according to patient size, use of iterative reconstruction technique) 2010 [employer]- All Rights Reserved Reading location - IP/workstation name: [email or web address]
== END ==
LOC: RAD 14:29
PROVIDERS: ATTEND Family Medicine
DX: J18.9 Pneumonia, unspecified organism (principal)
CPT/HCPCS: 71250

== ENCOUNTER → 2018-10-10 | Outpatient (CLI) | payer OTHER ==
--- NOTE | 2018-10-10 08:54 | WOMENS IMAGING REPORT ---
EXAM DESCRIPTION: BONE DENSITY HIP/SPINE COMPLETED DATE/TIME: 10/10/2018 8:37 am REASON FOR STUDY: Z12.31ROUTINE BILATERAL SCREENING,Z13.820 ENCOUNTER FOR SCREENING FOR OSTE Z13.820 ENCOUNTER FOR SCREENING FOR OSTEOPOROSIS Z12.31 ENCNTR SCREEN MAMMOGRAM FOR MALIGNANT NEOPLASM OF JUVE COMPARISON: None. TECHNIQUE: Dual-Energy X-ray Absorptiometry (DEXA) of the AP Spine and Hip. LIMITATIONS: None. FINDINGS: LUMBAR SPINE: The bone mineral density (BMD) measured from L1-L4 in the AP projection correlates with a T-score of 0.4, which is normal as defined by the World Health Organization. HIP: The bone mineral density (BMD) measured in the left hip correlates with a T-score of -0.9, which is n ormal as defined by the World Health Organization. IMPRESSION: 1. LUMBAR SPINE: NORMAL. 2. HIP: NORMAL. COMMENT: The World Health Organization defines low BMD as follows: T-score: Normal: Greater than -1.0 Osteopenia: Between -1.0 and -2.5 Osteoporosis: Less than -2.5 without fractures Established osteoporosis: Less than -2.5 with fractures In general, you may wish to consider: Diagnosis Treatment Follow-up DEXA Normal BMD Prevention 2-3 years Osteopenia Prevention/Therapy 1-2 years Osteoporosis Therapy Yearly TECHNICAL DOCUMENTATION: JOB ID: [id number]- All Rights Reserved Reading location - IP/workstation name: [email or web address]
--- NOTE | 2018-10-10 15:44 | WOMENS IMAGING REPORT ---
EXAM DESCRIPTION: BILAT SCREENING MAMMO W/CAD COMPLETED DATE/TIME: 10/10/2018 8:37 am REASON FOR STUDY: ROUTINE BILATERAL SCREENING,Z12.31 Z13.820 ENCOUNTER FOR SCREENING FOR OSTEOPOROS IS Z12.31 ENCNTR SCREEN MAMMOGRAM FOR MALIGNANT NEOPLASM OF JUVE COMPARISON: Multiple since 2008 TECHNIQUE: Standard craniocaudal and mediolateral oblique views of each breast recorded using digita l acquisition. LIMITATIONS: None. FINDINGS: Findings present which are benign by mammographic criteria. No suspicious masses, calcifi cations or architectural distortion. Pertinent benign findings: Benign oil cysts right breast upper inner quadrant Read with the assistance of CAD. .[facility] - R2 Cenova Version 1.3 .[facility] - R2 Cenova Version 2.1 .[facility] - R2 Cenova Version 2.4 .[facility] [place] - R2 Cenova Version 2.4 .[facility] - R2 [employer] Processor Version 9.2 Benign mammographic findings may include one or more of the following: Smooth masses, popcorn/rim/co arse calcifications, asymmetries, post-procedure changes, and lesions with long-standing stability. IMPRESSION: BENIGN MAMMOGRAPHIC FINDINGS. BIRADS 2 BREAST DENSITY: b. There are scattered areas of fibroglandular density. BIRAD: 2 BENIGN FINDING(S) RECOMMENDATION: ROUTINE SCREENING COMMENT: The patient has been notified of the results by letter per SA requirements. Additional no tification policies are in place for contacting patient with suspicious or incomplete findings. Quality ID #[id number]: The [employer] recommends an annual screening mammogram for women aged 40 years or over. This facility utilizes a reminder system to ensure that all patients receive reminder letters, and/or direct phone calls for appointments. This includes reminders for routine scr eening mammograms, diagnostic mammograms, or other Breast Imaging Interventions when appropriate. Th is patient will be placed in the appropriate reminder system. The [employer] (ACR) has developed recommendations for screening MRI of the breast s in certain patient populations, to be used in conjunction with mammography. Breast MRI surveillanc e may be appropriate for women with more than 20% lifetime risk of developing breast cancer as deter mined by genetic testing, significant family history of the disease, or history of mantle radiation f or Hodgkins Disease. ACR Practice Guidelines 2008. TECHNICAL DOCUMENTATION: FINDING NUMBER: (1) ASSESSMENT: (1) JOB ID: [id number] [employer]- All Rights Reserved Reading location - IP/workstation name: [email or web address]
== END ==
LOC: WI 08:25
PROVIDERS: ATTEND Family Medicine
DX: Z13.820 Encounter for screening for osteoporosis (principal); Z12.31 Encounter for screening mammogram for malignant neoplasm of breast
CPT/HCPCS: 77067; 77080

== ENCOUNTER 2020-01-05 23:12 | Observation (INO) | payer OTHER ==
[2020-01-05] MEDS ORDERED: ADENOSINE INJ/PF 6 MG/2 ML SDV IV ONE (23:57)
[2020-01-06] MEDS ORDERED: LORAZEPAM INJ 2 MG/1 ML VIAL ONE (00:09)
[2020-01-06] MEDS ORDERED: LORAZEPAM INJ 2 MG/1 ML VIAL IV ONE (00:53)
[2020-01-06] MEDS ORDERED: ADENOSINE INJ/PF 6 MG/2 ML SDV IV ONE (00:53)
--- NOTE | 2020-01-06 00:57 | ER Document Report ---
ED General - General Chief Complaint: Chest Tightness Stated Complaint: NUMBNESS IN LEFT ARM TRAVEL OUTSIDE OF THE [place] IN LAST 30 DAYS: No - HPI Notes: 54-year-old female history of hypertension, hyperlipidemia, diabetes, anxiety, unknown thyroid disorder presents with sudden onset palpitations, chest pain, shortness of breath that started just prior to arrival while patient was standing in kitchen washing dishes. Patient thinks he may have had similar episodes in the past but cannot tell me what the outcome of them was or if she was diagnosed with anything. Patient says that otherwise before this started she was feeling well. Patient denies any exertional chest pain, CAD history, prior stress/cath, recent illness, fevers, lower extremity edema, travel/surgery/immobilization, exogenous estrogen therapy, DVT/PE history, hypercoagulability history in self or family - Related Data Allergies/Adverse Reactions: iodine [Iodine] Allergy (Severe, Verified 10/23/17 19:02) SWELLING Sulfa (Sulfonamide Antibiotics) Adverse Reaction (Severe, Verified 10/23/17 19:02) Hives codeine [Codeine] Adverse Reaction (Intermediate, Verified 10/23/17 19:02) RAPID HEARTBEAT Home Medications: Metformin, Synthroid Past Medical History - General Information source: Patient - Social History Smoking Status: Former Smoker Lives with: Family Family History: Reviewed & Not Pertinent Patient has homicidal ideation: No - Past Medical History Cardiac Medical History: Denies: Hx Coronary Artery Disease, Hx Heart Attack, Hx Hypertension Pulmonary Medical History: Reports: Hx Asthma, Hx Bronchitis, Hx COPD, Hx Pneumonia Neurological Medical History: Denies: Hx Cerebrovascular Accident, Hx Seizures Endocrine Medical History: Reports: Hx Diabetes Mellitus Type 2 Renal/ Medical History: Denies: Hx Peritoneal Dialysis Musculoskeletal Medical History: Reports Hx Arthritis Past Surgical History: Reports: Hx Section. Denies: Hx Hysterectomy - Immunizations Hx Diphtheria, Pertussis, Tetanus Vaccination: Yes Review of Systems - Review of Systems Notes: REVIEW OF SYSTEMS: CONSTITUTIONAL : Denies fever, chills, or sweats. EENT: Denies recent cold/sinus symptoms, denies throat pain CARDIOVASCULAR: +chest pain, -BANDAR RESPIRATORY: Denies cough, + shortness of breath. GASTROINTESTINAL: Denies abdominal pain, nausea/vomiting. GENITOURINARY: Denies difficulty urinating, painful urination. FEMALE GENITOURINARY: Denies abnormal vaginal bleeding, vaginal discharge. MUSCULOSKELETAL: Denies neck pain, back pain. SKIN: Denies rash or skin lesions. HEMATOLOGIC : Denies easy bruising or bleeding. LYMPHATIC: Denies swollen, enlarged glands. NEUROLOGICAL: Denies headache, denies change in gait. PSYCHIATRIC: +anxiety -depression. Physical Exam - Vital signs Vitals: Resp 18 01/05/20 23:26 Course - Re-evaluation Re-evalutation: 01/06/20 00:56 Patient rate 165 on arrival, SVT on EKG, patient was placed on twelve-lead running and defibrillator and adenosine 12 mg was placed with conversion to normal sinus rhythm and the rate in 100s. Patient felt improved, but given unknown history of SVT and multiple CAD risk factors will rule out ACS and PE. Will continue to monitor. Chief complaint listed as numbness in left arm is erroneous. Patient endorses having tingling in both of her hands that started around the same time as palpitations and chest pain which is resolved, no symptoms concerning for stroke and no indication to rule out stroke. 01/06/20 03:05 Patient feels improved but given the heart score of 5 and no recent cardiac work-up patient to go to telemetry 01/06/20 03:22 - Vital Signs Vital signs: Temp Pulse Resp BP Pulse Ox 98.4 F 78 16 136/58 H 95 01/06/20 17:31 01/06/20 17:31 01/06/20 17:31 01/06/20 17:31 01/06/20 17:31 - Laboratory Result Diagrams: 01/06/20 00:01 01/06/20 00:01 Laboratory results interpreted by me: 01/06/20 01/06/20 01/06/20 00:01 00:01 00:01 MCV 77 L MCH 25.5 L RDW 15.5 H Sodium 136.5 L Carbon Dioxide 21 L Est GFR (MDRD) Non-Af 57 L Glucose 275 H Hemoglobin A1c % ALT 45 H TSH 0.17 L 01/06/20 00:01 MCV MCH RDW Sodium Carbon Dioxide Est GFR (MDRD) Non-Af Glucose Hemoglobin A1c % 8.5 H ALT TSH - EKG Interpretation by Me Additional EKG results interpreted by me: 01/05/20 23:45 HR 161, regular narrow complex tachycardia without P waves c/w SVT, diffuse sub- mm ST depressions, QTc 485 Discharge - Discharge Clinical Impression: Chest pain Qualifiers: Chest pain type: unspecified Qualified Code(s): R07.9 - Chest pain, unspecified Condition: Stable Disposition: ADMITTED OBSERVATION Admitting Provider: Rd (Hospitalist) Unit Admitted: Telemetry
--- NOTE | 2020-01-06 01:31 | RADIOLOGY REPORT (SQ) ---
EXAM DESCRIPTION: XR CHEST 1 VIEW COMPLETED DATE/TME: 01/06/2020 00:53 CLINICAL HISTORY: 54 years, Female, SOB CP tachycardia COMPARISON: 10/23/2017 chest NUMBER OF VIEWS: 1 TECHNIQUE: Portable chest LIMITATIONS: None. FINDINGS: There is overlying artifact. The heart size is stable. Lungs are clear. No pneumothorax IMPRESSION: No acute cardiopulmonary process copyright 2010 [employer]- All Rights Reserved
[2020-01-06 02:12] LABS: ABSOLUTE BASOPHILS # (AUTO) 0.1 10^3/uL (0.0-0.2); ABSOLUTE EOSINOPHILS # (AUTO) 0.2 10^3/uL (0.0-0.6); ABSOLUTE LYMPHOCYTES (AUTO) 3.5 10^3/uL (0.5-4.7); ABSOLUTE MONOCYTES (AUTO) 0.5 10^3/uL (0.1-1.4); ABSOLUTE NEUT (AUTO) 4.2 10^3/uL (1.7-8.2); BASOPHILS % (AUTO) 1.2 % (0-2); EOSINOPHILS % (AUTO) 2.9 % (0-6); HEMATOCRIT 38.2 % (36.0-47.0); HEMOGLOBIN 12.7 g/dL (12.0-15.5); LYMPHOCYTES % (AUTO) 41.2 % (13-45); MEAN CORPUSCULAR HEMOGLOBIN 25.5 pg (27.0-33.4); MEAN CORPUSCULAR HGB CONC 33.2 g/dL (32.0-36.0); MEAN CORPUSCULAR VOLUME 77 fl (80-97); MONOCYTES % (AUTO) 5.6 % (3-13); PLATELET COUNT 236 10^3/uL (150-450); RED BLOOD COUNT 4.97 10^6/uL (3.72-5.28); RED CELL DISTRIBUTION WIDTH 15.5 % (11.5-14.0); SEGMENTED NEUTROPHILS % (AUTO) 49.1 % (42-78); TOTAL CELLS COUNTED % (AUTO) 100 %; WHITE BLOOD COUNT 8.5 10^3/uL (4.0-10.5)
[2020-01-06 02:15] LABS: ALBUMIN 4.1 g/dL (3.5-5.0); ALKALINE PHOSPHATASE 85 U/L (38-126); ANION GAP 10 (5-19); ASPARTATE AMINO TRANSFERASE 27 U/L (14-36); BILIRUBIN,DIRECT 0.1 mg/dL (0.0-0.4); BILIRUBIN,TOTAL 0.4 mg/dL (0.2-1.3); BLOOD UREA NITROGEN 13 mg/dL (7-20); CALCIUM 9.9 mg/dL (8.4-10.2); CARBON DIOXIDE 21 mmol/L (22-30); CHLORIDE 106 mmol/L (98-107); GLUCOSE 275 mg/dL (75-110); POTASSIUM 4.4 mmol/L (3.6-5.0); TOTAL PROTEIN 6.5 g/dL (6.3-8.2)
[2020-01-06] MEDS ORDERED: ASPIRIN 81 MG TABLET, CHEWABLE PO ONE (03:05)
[2020-01-06] MEDS ORDERED: DEXTROSE 40% GEL 15 GM TUBE PO PRN ×2 (03:07)
[2020-01-06] MEDS ORDERED: NITROGLYCERIN 0.4 MG/TAB 25 TAB/BOTTLE SL PRN (03:07)
[2020-01-06] MEDS ORDERED: ACETAMINOPHEN 325 MG TABLET PO PRN (03:07)
[2020-01-06] MEDS ORDERED: DEXTROSE 50%-WATER 25 GM/50 ML DISP.SYRIN IV PRN ×2 (03:07)
[2020-01-06] MEDS ORDERED: GLUCAGON,HUMAN RECOMB 1 MG INJ IM PRN (03:07)
[2020-01-06] MEDS ORDERED: ATORVASTATIN CALCIUM 40 MG TABLET PO ONE (03:15)
--- NOTE | 2020-01-06 06:02 | PDOC H&P ---
History of Present Illness Admission Date/PCP: 01/06/20 03:34 TIKI LU MD Patient complains of: Palpitations History of Present Illness: MATTIE LAI is a 54 year old female with a past medical history of COPD, diabetes, thyroidectomy, depression, anxiety and SVT. She presents 2 hours after the abrupt onset of palpitations while working in the kitchen. It was associated with chest tightness and shortness of breath prompting evaluation emergency department where she was found to have supraventricular tachycardia which broke after adenosine. She admits to intermittent palpitations but usually resolve spontaneously. She does admit to excessive caffeine, a recent thyroxine dose increase and poorly controlled anxiety. She is pain-free and referred to the hospitalist for admission with sinus tachycardia at 120. Past Medical History Cardiac Medical History: Reports: Hypertension Denies: Congestive Heart Failure, Coronary Artery Disease, Myocardial Infarction Pulmonary Medical History: Reports: Asthma, Bronchitis, Chronic Obstructive Pulmonary Disease (COPD), Pneumonia Denies: Tuberculosis Neurological Medical History: Denies: Seizures Endocrine Medical History: Reports: Diabetes Mellitus Type 2 Renal/ Medical History: Denies: End Stage Renal Disease GI Medical History: Reports: Gastroesophageal Reflux Disease Denies: Cirrhosis Musculoskeltal Medical History: Reports: Arthritis Psychiatric Medical History: Denies: Bipolar Disorder, Depression Hematology: Reports: Anemia - Iron deficiency anemia Denies: Bleeding Tendencies Past Surgical History Past Surgical History: Reports: Section Denies: Hysterectomy Social History Information Source: Patient Lives with: Family Smoking Status: Former Smoker Frequency of Alcohol Use: Occasional Hx Recreational Drug Use: No Drugs: Marijuana Hx Prescription Drug Abuse: No - Advance Directive Resuscitation Status: Full Code Family History Family History: Hypertension Parental Family History Reviewed: Yes Children Family History Reviewed: Yes Sibling(s) Family History Reviewed.: Yes Medication/Allergy Home Medications: Aspirin 81 mg PO DAILY PRN 04/02/14 Esomeprazole Mag Trihydrate [Nexium] 40 mg PO QHS 04/02/14 Krill/Coral-3/Dha/Epa/Lipids [Krill Oil 300 mg Softgel] 1 each PO DAILY 04/02/14 Sertraline HCl 100 mg PO DAILY 04/02/14 Albuterol Sulfate [Proair HFA Inhalation Aerosol 8.5 gm MDI] 2 puff IH Q4HP PRN 10/24/17 Cetirizine HCl [Zyrtec] 10 mg PO DAILY 10/24/17 Ergocalciferol (Vitamin D2) [Vitamin D2] 50,000 unit PO Q7D 10/24/17 Etodolac 400 mg PO BID 10/24/17 Fenofibrate Nanocrystallized [Tricor 145 mg Tablet] 145 mg PO QHS 10/24/17 Ferrous Sulfate [Feosol 325 mg Tablet] 325 mg PO BID 10/24/17 Fluticasone Propionate [Flonase Nasal [place] 50 Mcg/[place] 16 gm] 2 sprays NASL DAILY 10/24/17 Ipratropium [place] [Atrovent 0.06% Nasal [place]] 2 spray NASL BID 10/24/17 Levothyroxine Sodium [Synthroid 0.112 mg Tablet] 112 mcg PO DAILY 10/24/17 Linagliptin [Tradjenta] 5 mg PO DAILY 10/24/17 Meloxicam [Mobic] 15 mg PO DAILY 10/24/17 Metformin HCl [Metformin HCl ER] 1,000 mg PO BID 10/24/17 Amox Tr/Potassium Clavulanate [Augmentin "500" Tablet] 1 tab PO Q8 3 Days #9 tablet 10/28/17 Allergies/Adverse Reactions: iodine [Iodine] Allergy (Severe, Verified 10/23/17 19:02) SWELLING Sulfa (Sulfonamide Antibiotics) Adverse Reaction (Severe, Verified 10/23/17 19:02) Hives codeine [Codeine] Adverse Reaction (Intermediate, Verified 10/23/17 19:02) RAPID HEARTBEAT Review of Systems Constitutional: ABSENT: chills, fever(s), headache(s), weight gain, weight loss Eyes: ABSENT: visual disturbances Ears: ABSENT: hearing changes Cardiovascular: ABSENT: chest pain, dyspnea on exertion, edema, orthropnea, palpitations Respiratory: ABSENT: cough, hemoptysis Gastrointestinal: ABSENT: abdominal pain, constipation, diarrhea, hematemesis, hematochezia, nausea, vomiting Genitourinary: ABSENT: dysuria, hematuria Musculoskeletal: ABSENT: joint swelling Integumentary: ABSENT: rash, wounds Neurological: ABSENT: abnormal gait, abnormal speech, confusion, dizziness, focal weakness, syncope Psychiatric: ABSENT: anxiety, depression, homidical ideation, suicidal ideation Endocrine: ABSENT: cold intolerance, heat intolerance, polydipsia, polyuria Hematologic/Lymphatic: ABSENT: easy bleeding, easy bruising Physical Exam Vital Signs: Temp Pulse Resp BP Pulse Ox 97.7 F 66 16 136/58 H 100 01/06/20 04:21 01/06/20 04:21 01/06/20 04:21 01/06/20 04:21 01/06/20 04:21 Intake & Output 01/04/20 01/05/20 01/06/20 11:59 11:59 11:59 Weight 84.2 kg General appearance: PRESENT: no acute distress, well-developed, well-nourished Head exam: PRESENT: atraumatic, normocephalic Eye exam: PRESENT: conjunctiva pink, EOMI, PERRLA. ABSENT: scleral icterus Ear exam: PRESENT: normal external ear exam Mouth exam: PRESENT: moist, tongue midline Neck exam: ABSENT: carotid bruit, JVD, lymphadenopathy, thyromegaly Respiratory exam: PRESENT: clear to auscultation aaliyah. ABSENT: rales, rhonchi, wheezes Cardiovascular exam: PRESENT: RRR. ABSENT: diastolic murmur, rubs, systolic murmur Pulses: PRESENT: normal dorsalis pedis pul Vascular exam: PRESENT: normal capillary refill GI/Abdominal exam: PRESENT: normal bowel sounds, soft. ABSENT: distended, gua rding, mass, organolmegaly, rebound, tenderness Rectal exam: PRESENT: deferred Extremities exam: PRESENT: full ROM. ABSENT: calf tenderness, clubbing, pedal edema Neurological exam: PRESENT: alert, awake, oriented to person, oriented to place, oriented to time, oriented to situation, CN II-XII grossly intact. ABSENT: motor sensory deficit Psychiatric exam: PRESENT: appropriate affect, normal mood. ABSENT: homicidal ideation, suicidal ideation Skin exam: PRESENT: dry, intact, warm. ABSENT: cyanosis, rash Results Laboratory Results: 01/06/20 00:01 01/06/20 00:01 01/06/20 01/06/20 01/06/20 00:01 00:01 00:01 WBC 8.5 RBC 4.97 Hgb 12.7 Hct 38.2 MCV 77 L MCH 25.5 L MCHC 33.2 RDW 15.5 H Plt Count 236 Seg Neutrophils % 49.1 Sodium 136.5 L Potassium 4.4 Chloride 106 Carbon Dioxide 21 L Anion Gap 10 BUN 13 Creatinine 1.01 Est GFR ( Amer) > 60 Glucose 275 H Calcium 9.9 Total Bilirubin 0.4 AST 27 Alkaline Phosphatase 85 Total Protein 6.5 Albumin 4.1 TSH 0.17 L Free T4 01/06/20 00:01 WBC RBC Hgb Hct MCV MCH MCHC RDW Plt Count Seg Neutrophils % Sodium Potassium Chloride Carbon Dioxide Anion Gap BUN Creatinine Est GFR ( Amer) Glucose Calcium Total Bilirubin AST Alkaline Phosphatase Total Protein Albumin TSH Free T4 1.85 01/06/20 00:01 Troponin I 0.012 Impressions: Chest X-Ray 01/06/20 00:53 IMPRESSION: No acute cardiopulmonary process copyright 2010 [employer]- All Rights Reserved Assessment and Plan - Diagnosis (1) SVT (supraventricular tachycardia) Is this a current diagnosis for this admission?: Yes Plan: Complicated by Synthroid use, poorly controlled anxiety and excessive caffeine. Education and Coreg trial. (2) Anxiety Is this a current diagnosis for this admission?: Yes Plan: Reassurance, consider change of agent from Zoloft to Prozac. And outpatient mental health referral. (3) Hypothyroidism Is this a current diagnosis for this admission?: Yes Plan: Follow-up TSH and free T4 (4) Chest pain Qualifiers: Chest pain type: unspecified Qualified Code(s): R07.9 - Chest pain, unspecified Is this a current diagnosis for this admission?: Yes Plan: Likely secondary to SVT, follow-up serial cardiac enzymes, lipid profile, Cardiolite stress test ordered (5) Diabetes Is this a current diagnosis for this admission?: Yes Plan: Humalog insulin as needed. Follow-up A1c
[2020-01-06] MEDS ORDERED: CARVEDILOL 3.125 MG TABLET PO ONE (07:00)
--- NOTE | 2020-01-06 07:32 | EKG REPORT ---
SEVERITY:- OTHERWISE NORMAL ECG - SINUS TACHYCARDIA : Confirmed by: Simone Ellison MD 06-Jan-2020 07:32:00
[2020-01-06] MEDS: INSULIN LISPRO 100 UNIT/ML 3 ML VIAL SUBCUT SCH ×3 (08:25→16:47)
[2020-01-06] MEDS ORDERED: ASPIRIN 81 MG TABLET, ENT COATED PO SCH (10:00)
[2020-01-06] MEDS ORDERED: REGADENOSON INJ 0.4 MG/5 ML DISP.SYRIN IV ONE (12:09)
[2020-01-06] MEDS ORDERED: LISINOPRIL 10 MG TABLET PO SCH (13:00)
--- NOTE | 2020-01-06 13:04 | DRAGON STRESS TEST REPORT ---
Pharmacological nuclear stress test Date: January 06, 2020 Referring physician: Dr. Jorden Monteiro Performing physician: Efren Cho MD Indication: Chest pain Clinical history 54 year-old with lady with dyslipidemia who presented with chest pain. We decided to proceed with pharmacological nuclear stress test Procedure The patient presented to the stress lab. Initially rest images were obtained according to standard protocol after the injection of 13.78 millicurie technetium 99m sestamibi. Subsequently the patient underwent pharmacological stress utilizing 0.4 mg of regadenoson intravenously. The patient's EKG and vital signs were monitored throughout the procedure. Subsequently patient was injected with 41.7 millicuries of technetium 99m sestamibi. After a period of rest, stress images were obtained according to standard protocol. The patient's resting EKG showed sinus rhythm at 77 beats per minute. The patient's stress EKG did not show any evidence for myocardial ischemia. There were no arrhythmias observed. Raw as well as processed rest and stress images were reviewed. There was mild to moderate gut uptake which did not interfere with the study. There is mild intensity, medium sized, reversible perfusion defect in the anterior wall and apex. There is normal contractility post stress. The calculated ejection fraction is 56%. The TID ratio is 1.07. Conclusion The stress EKG is negative for myocardial ischemia There is reversible perfusion defect in the anterior wall and apex suggestive of ischemia in the LAD distribution. There is normal contractility post-stress. The gated left ventricular ejection fraction is 56 %. Discussed with Dr. Monteiro. Will initiate medical therapy consisting of aspirin, statin and beta-yareli. Patient will be given an appointment to follow-up this week in the office. We will pursue cardiac catheterization based on symptoms. At the present time she does not have any ischemic symptoms such as chest pain or dyspnea. MTDD
[2020-01-06] MEDS ORDERED: FLUTICASONE/VILANTEROL 200-25 MCG/DOSE IH SCH (14:00)
[2020-01-06] MEDS ORDERED: METFORMIN HCL 500 MG TABLET PO SCH (17:00)
--- NOTE | 2020-01-06 17:05 | PDOC DISCHARGE SUMMARY ---
Impression - Admit/DC Date/PCP Admission Date/Primary Care Provider: 01/06/20 03:34 TIKI LU MD Discharge Date: 01/06/20 - Additional Information Resuscitation Status: Full Code Discharge Diet: Cardiac, Diabetic Discharge Activity: Activity As Tolerated, Balance Activity w/Rest Referrals: ARLEEN SCHNEIDER MD [ACTIVE STAFF] - (PROVIDER'S OFFICE WILL CALL PATIENT AND SCHEDULE AN APPT.) TIKI LU MD [Primary Care Provider] - Follow up as needed (NO ANSWER AT PROVIDER'S OFFICE. A MESSAGE WAS LEFT FOR OFFICE TO CALL PATIENT WITH A HOSPITAL FOLLOW UP APPT. DATE/TIME.) Prescriptions: Carvedilol [Coreg 3.125 mg Tablet] 3.125 mg PO Q12 #60 tablet Lisinopril [Prinivil 10 mg Tablet] 10 mg PO DAILY #30 tablet Home Medications: Esomeprazole Mag Trihydrate [Nexium] 40 mg PO QHS 04/02/14 Sertraline HCl 100 mg PO DAILY 04/02/14 Albuterol Sulfate [Proair HFA Inhalation Aerosol 8.5 gm MDI] 2 puff IH Q4HP PRN 10/24/17 Cetirizine HCl [Zyrtec] 10 mg PO DAILY 10/24/17 Ergocalciferol (Vitamin D2) [Vitamin D2] 50,000 unit PO WE@1000 10/24/17 Ferrous Sulfate [Feosol 325 mg Tablet] 325 mg PO BID 10/24/17 Fluticasone Propionate [Flonase Nasal [place] 50 Mcg/[place] 16 gm] 2 sprays NASL DAILY 10/24/17 Meloxicam [Mobic] 15 mg PO DAILY 10/24/17 Metformin HCl [Metformin HCl ER] 1,000 mg PO BID 10/24/17 Albuterol Sulfate [Ventolin 0.083% Neb 2.5 mg/3 mL Ampul] 1 vial NEB Q6HP PRN 01/06/20 Aspirin [Ecotrin 81 mg EC Tablet] 81 mg PO DAILY tabec 01/06/20 Atorvastatin Calcium [Lipitor 40 mg Tablet] 40 mg PO QHS 01/06/20 Budesonide/Formoterol Fumarate [Symbicort HFA 160-4.5 mcg Inhaler 6 gm] 1 puff IH Q12 01/06/20 Carvedilol [Coreg 3.125 mg Tablet] 3.125 mg PO Q12 #60 tablet 01/06/20 Levothyroxine Sodium [Synthroid] 125 mcg PO DAILY 01/06/20 Lisinopril [Prinivil 10 mg Tablet] 10 mg PO DAILY #30 tablet 01/06/20 Montelukast Sodium [Singulair 10 mg Tablet] 10 mg PO QHS 01/06/20 Sitagliptin Phosphate [Januvia 50 mg Tablet] 100 mg PO DAILY 01/06/20 History of Present Illiness History of Present Illness: MATTIE LAI is a 54 year old female with a past medical history of COPD, diabetes, thyroidectomy, depression, anxiety and SVT. She presents 2 hours after the abrupt onset of palpitations while working in the kitchen. It was associated with chest tightness and shortness of breath prompting evaluation emergency department where she was found to have supraventricular tachycardia which broke after adenosine. She admits to intermittent palpitations but usually resolve spontaneously. She does admit to excessive caffeine, a recent thyroxine dose increase and poorly controlled anxiety. She is pain-free and referred to the hospitalist for admission with sinus tachycardia at 120. Hospital Course Hospital Course: She has been chest pain-free and her heart rate is been in regular range. Her blood pressures were elevated and so she has been started on Coreg and lisinopril with some improvement in her pressures. She says she has had high blood pressure for a long time and she basically just up checking it because it was always high but has not been on any medications for it. She had a stress test which showed some abnormalities indicating ischemia in the LAD region. She was not having any more pain and no abnormalities on telemetry. Dr. Schneider recommended medical therapy for her and close follow-up in his office in 2 to 3 days, at which point he will arrange for further follow-up investigations. Patient was in agreement with this plan. She was advised to return immediately if she had a recurrence of symptoms. She acknowledged her understanding. Her labs and examination were reassuring and she was discharged in stable condition. Physical Exam Vital Signs: Temp Pulse Resp BP Pulse Ox 98.4 F 78 16 169/63 H 95 01/06/20 15:34 01/06/20 15:34 01/06/20 15:34 01/06/20 15:34 01/06/20 15:34 Intake & Output 0501/06/20 01/07/20 06:59 06:59 06:59 Intake Total 240 Output Total 700 Balance -460 Weight 84.2 kg General appearance: PRESENT: no acute distress, cooperative, disheveled, morbidly obese Respiratory exam: PRESENT: clear to auscultation aaliyah, symmetrical, unlabored. ABSENT: accessory muscle use, crackles, prolonged expiratory phas, rhonchi, tachypnea Cardiovascular exam: PRESENT: RRR, +S1, +S2. ABSENT: diastolic murmur, systolic murmur Pulses: PRESENT: normal carotid pulses Vascular exam: PRESENT: normal capillary refill GI/Abdominal exam: PRESENT: normal bowel sounds, soft. ABSENT: distended, guarding, rebound, tenderness Extremities exam: ABSENT: pedal edema Musculoskeletal exam: PRESENT: normal inspection Neurological exam: PRESENT: alert, awake, oriented to person, oriented to place, oriented to time, oriented to situation Psychiatric exam: PRESENT: flat affect Skin exam: PRESENT: dry, warm Results Laboratory Results: WBC 8.5 10^3/uL (4.0-10.5) 01/06/20 00:01 RBC 4.97 10^6/uL (3.72-5.28) 01/06/20 00:01 Hgb 12.7 g/dL (12.0-15.5) 01/06/20 00:01 Hct 38.2 % (36.0-47.0) 01/06/20 00:01 MCV 77 fl (80-97) L 01/06/20 00:01 MCH 25.5 pg (27.0-33.4) L 01/06/20 00:01 MCHC 33.2 g/dL (32.0-36.0) 01/06/20 00:01 RDW 15.5 % (11.5-14.0) H 01/06/20 00:01 Plt Count 236 10^3/uL (150-450) 01/06/20 00:01 Lymph % (Auto) 41.2 % (13-45) 01/06/20 00:01 [place] % (Auto) 5.6 % (3-13) 01/06/20 00:01 Eos % (Auto) 2.9 % (0-6) 01/06/20 00:01 Baso % (Auto) 1.2 % (0-2) 01/06/20 00:01 Absolute Neuts (auto) 4.2 10^3/uL (1.7-8.2) 01/06/20 00:01 Absolute Lymphs (auto) 3.5 10^3/uL (0.5-4.7) 01/06/20 00:01 Absolute Monos (auto) 0.5 10^3/uL (0.1-1.4) 01/06/20 00:01 Absolute Eos (auto) 0.2 10^3/uL (0.0-0.6) 01/06/20 00:01 Absolute Basos (auto) 0.1 10^3/uL (0.0-0.2) 01/06/20 00:01 Seg Neutrophils % 49.1 % (42-78) 01/06/20 00:01 D-Dimer 0.44 ug/mL (0.00-0.50) 01/06/20 00:01 Sodium 136.5 mmol/L (137-145) L 01/06/20 00:01 Potassium 4.4 mmol/L (3.6-5.0) 01/06/20 00:01 Chloride 106 mmol/L (98-107) 01/06/20 00:01 Carbon Dioxide 21 mmol/L (22-30) L 01/06/20 00:01 Anion Gap 10 (5-19) 01/06/20 00:01 BUN 13 mg/dL (7-20) 01/06/20 00:01 Creatinine 1.01 mg/dL (0.52-1.25) 01/06/20 00:01 Est GFR ( Amer) > 60 (>60) 01/06/20 00:01 Est GFR (MDRD) Non-Af 57 (>60) L 01/06/20 00:01 Glucose 275 mg/dL (75-110) H 01/06/20 00:01 POC Glucose 188 mg/dL (70-110) H 01/06/20 15:36 Hemoglobin A1c % 8.5 % (4.7-6.0) H 01/06/20 00:01 Calcium 9.9 mg/dL (8.4-10.2) 01/06/20 00:01 Total Bilirubin 0.4 mg/dL (0.2-1.3) 01/06/20 00:01 Direct Bilirubin 0.1 mg/dL (0.0-0.4) 01/06/20 00:01 Neonat Total Bilirubin Not Reportable 01/06/20 00:01 Neonat Direct Bilirubin Not Reportable 01/06/20 00:01 Neonat Indirect Bili Not Reportable 01/06/20 00:01 AST 27 U/L (14-36) 01/06/20 00:01 ALT 45 U/L (<35) H 01/06/20 00:01 Alkaline Phosphatase 85 U/L (38-126) 01/06/20 00:01 Troponin I 0.041 ng/mL 01/06/20 12:46 Total Protein 6.5 g/dL (6.3-8.2) 01/06/20 00:01 Albumin 4.1 g/dL (3.5-5.0) 01/06/20 00:01 TSH 0.17 uIU/mL (0.47-4.68) L 01/06/20 00:01 Free T4 1.85 ng/dL (0.78-2.19) 01/06/20 00:01 01/06/20 01/06/20 01/06/20 00:01 06:03 12:46 Troponin I 0.012 0.054 0.041 Impressions: Chest X-Ray 01/06/20 00:53 IMPRESSION: No acute cardiopulmonary process copyright 2011 [employer]- All Rights Reserved Plan Time Spent: Greater than 30 Minutes Stroke Is this a Stroke Patient?: No Acute Heart Failure - Is this a Heart Failure Patient?: No
[2020-01-06 17:33] VITALS: BP 136/58
[2020-01-06] MEDS ORDERED: FERROUS SULFATE 325 MG TABLET PO SCH (18:00)
[2020-01-06] MEDS ORDERED: (PENDING PHARMACY ID) (Metformin Hcl [Metformin Hcl Er] 1,000 MG) PO SCH (18:00)
[2020-01-06] MEDS ORDERED: INSULIN GLARGINE,HUM.REC.ANLOG 1,000 UNIT/10 ML VIAL SUBCUT SCH (22:00)
[2020-01-06] MEDS ORDERED: CARVEDILOL 3.125 MG TABLET PO SCH (22:00)
[2020-01-06] MEDS ORDERED: (PENDING PHARMACY ID) (Budesonide/Formoterol Fumarate 1 PUFF) IH SCH (22:00)
[2020-01-06] MEDS ORDERED: ATORVASTATIN CALCIUM 40 MG TABLET PO SCH (22:00)
[2020-01-06] MEDS ORDERED: (PENDING PHARMACY ID) (Esomeprazole Mag Trihydrate [Nexium] 40 MG) PO SCH (22:00)
[2020-01-06] MEDS ORDERED: PANTOPRAZOLE SODIUM 40 MG TABLET.DR PO SCH (22:00)
[2020-01-07] MEDS ORDERED: LEVOTHYROXINE SODIUM 0.1 MG TABLET PO SCH (06:00)
[2020-01-07] MEDS ORDERED: LEVOTHYROXINE SODIUM 0.025 MG TABLET PO SCH (06:00)
[2020-01-07] MEDS ORDERED: SITAGLIPTIN PHOSPHATE 50 MG TABLET PO SCH (10:00)
[2020-01-07] MEDS ORDERED: (PENDING PHARMACY ID) (Levothyroxine Sodium [Synthroid] 125 MCG) PO SCH (10:00)
[2020-01-07] MEDS ORDERED: SERTRALINE HCL 50 MG TABLET PO SCH (10:00)
== END 2020-01-06 18:08 | disposition home or self-care (01) ==
LOC: ER 23:12 → EH 01-06 03:34 → 4N 01-06 04:19
PROVIDERS: ADMIT Internal Medicine; ATTEND Family Medicine
DX: F41.9 Anxiety disorder, unspecified (principal); I47.1 Supraventricular tachycardia; R94.39 Abnormal result of other cardiovascular function study; R07.89 Other chest pain; E11.8 Type 2 diabetes mellitus with unspecified complications; I25.10 Atherosclerotic heart disease of native coronary artery without angina pectoris; J44.9 Chronic obstructive pulmonary disease, unspecified; E66.01 Morbid (severe) obesity due to excess calories; K21.9 Gastro-esophageal reflux disease without esophagitis; F15.99 Other stimulant use, unspecified with unspecified stimulant-induced disorder; E03.9 Hypothyroidism, unspecified; E78.5 Hyperlipidemia, unspecified; I10 Essential (primary) hypertension; M19.90 Unspecified osteoarthritis, unspecified site; Z79.890 Hormone replacement therapy; Z79.899 Other long term (current) drug therapy; Z79.84 Long term (current) use of oral hypoglycemic drugs; Z79.82 Long term (current) use of aspirin; Z87.891 Personal history of nicotine dependence; Z82.49 Family history of ischemic heart disease and other diseases of the circulatory system; Z79.1 Long term (current) use of non-steroidal anti-inflammatories (NSAID)
CPT/HCPCS: 93005; 99285; 96374; 96375; 36415; 84439; 82962; 84443; 85025; 80053; 84484; 83036; 85379; 93017; 71045; 78452; 93010; A9500; J2785; J1815; J2060; J0153; Q9969; J3490; G0378

== ENCOUNTER → 2020-01-29 | Outpatient (CLI) | payer OTHER | LOC: SP 10:51 | PROVIDERS: ATTEND Internal Medicine | DX: I25.119 Atherosclerotic heart disease of native coronary artery with unspecified angina pectoris (principal); R94.39 Abnormal result of other cardiovascular function study; R06.00 Dyspnea, unspecified | CPT/HCPCS: 93306 ==